=== PATIENT | male | born 1955 | race Caucasian/White ===

== ENCOUNTER 2016-11-22 10:09 | Outpatient (CLI) | payer OTHER | END 2016-11-22 10:10 | disposition home or self-care (01) | DX: E10.22 Type 1 diabetes mellitus with diabetic chronic kidney disease (principal); N18.3 Chronic kidney disease, stage 3 (moderate) ==

== ENCOUNTER 2017-03-09 10:25 | Outpatient (CLI) | payer OTHER ==
[2017-03-09 18:58] LABS: CALCIUM 9.7 mg/dL (8.5-10.3); CREATININE 1.3 mg/dL (0.6-1.2); POTASSIUM 4.5 mmol/L (3.5-5.0)
[2017-03-09 19:15] LABS: HEMOGLOBIN A1C 0.75 g/dL
== END 2017-03-09 10:26 | disposition home or self-care (01) ==
LOC: LAB.F 10:25
PROVIDERS: ATTEND Nurse Practitioner
DX: E10.22 Type 1 diabetes mellitus with diabetic chronic kidney disease (principal)
CPT/HCPCS: 36415; 80048; 82043; 82570; 83036

== ENCOUNTER 2017-05-11 16:34 | Outpatient (CLI) | payer OTHER ==
--- NOTE | 2017-05-12 11:11 | MRI Report ---
EXAM: RIGHT ANKLE/HINDFOOT MRI WITHOUT CONTRAST EXAM DATE: 05/11/2017 05:39 PM. CLINICAL HISTORY: Clinical concern for peroneus longus tear at the level of the cuboid. Ankle pain th at radiates to the foot one year after strain. 1 year ago the patient had an injury during running an d felt a pop. COMPARISON: MRI 07/16/2016. TECHNIQUE: Multiplanar, multisequence T1-weighted and fluid-sensitive sequences of the ankle/hindfoot without contrast. Other: None. FINDINGS: Bones: No fractures. The patient has a small plantar calcaneal spur with associated edema. The edema has decreased compared to the prior exam. Articular Cartilage: Unremarkable. Ligaments: The anterior and posterior tibiofibular, anterior and posterior talofibular, and calcaneof ibular ligaments are intact. The deep and superficial deltoid and spring ligaments are intact. Anterior Tendons: The tibialis anterior, extensor hallucis longus, and extensor digitorum longus tend ons are unremarkable. Medial Tendons: The tibialis posterior, flexor digitorum longus, and flexor hallucis longus tendons a re unremarkable. Lateral Tendons: The peroneus brevis tendon is unremarkable. There is a very subtle focal, chronic-ap pearing longitudinal split tear in the peroneus longus right under the cuboid at the site of pain (se weir 701, image 15). Achilles Tendon: Unremarkable. Musculature: There is moderate fatty atrophy of the intrinsic musculature of the foot. Other: No effusions. The contents of the sinus tarsi and tarsal tunnel are unremarkable. The plantar fascia is severely thickened, now measuring 1.3 cm in thickness. However, the edema within and surrou nding it has decreased and the tear previously seen at this location has healed. The subcutaneous tis sues are unremarkable. IMPRESSION: 1. Severe but improved plantar fasciitis with reduction in the surrounding edema and healing of the p reviously small tear. 2. 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 RADIA MUSCULOSKELETAL RADIOLOGY SECTION Referring Provider Line: [phone] SITE ID: [id number]
== END 2017-05-11 16:35 | disposition home or self-care (01) ==
LOC: DI 16:34
PROVIDERS: ATTEND Podiatrist
DX: M72.2 Plantar fascial fibromatosis (principal); S86.311D Strain of muscle(s) and tendon(s) of peroneal muscle group at lower leg level, right leg, subsequent encounter

== ENCOUNTER 2017-06-08 08:04 | Outpatient (CLI) | payer OTHER ==
[2017-06-08 11:46] LABS: HEMOGLOBIN A1C 0.77 g/dL
== END 2017-06-08 08:05 | disposition home or self-care (01) ==
LOC: LAB.F 08:04
PROVIDERS: ATTEND Nurse Practitioner
DX: E10.22 Type 1 diabetes mellitus with diabetic chronic kidney disease (principal); N18.3 Chronic kidney disease, stage 3 (moderate)
CPT/HCPCS: 36415; 83036

== ENCOUNTER 2017-09-11 08:31 | Outpatient (CLI) | payer OTHER ==
[2017-09-11 12:29] LABS: MICROALBUMIN,URINE < 0.3 mg/dL (0-300.0)
[2017-09-11 12:36] LABS: BUN - BLOOD UREA NITROGEN 23 mg/dL (6-20); CALCIUM 9.3 mg/dL (8.5-10.3); CARBON DIOXIDE - CO2 27 mmol/L (21-32); CHLORIDE 102 mmol/L (101-111); CHOL/HDL RATIO 3.1 (<5.0); CHOLESTEROL 182 mg/dL; CREATININE 1.1 mg/dL (0.6-1.2); GFR - MDRD 68 (>89); GLUCOSE 112 mg/dL (70-100); HDL CHOLESTEROL 59 mg/dL; LDL CHOLESTEROL,CALCULATED 104 mg/dL; LDL/HDL RATIO 1.8 (<3.6); SODIUM 136 mmol/L (135-145); VLDL CHOLESTEROL 19 mg/dL
[2017-09-11 12:44] LABS: HB2 TOTAL 14.9 g/dL; HEMOGLOBIN A1C 0.7 g/dL; HEMOGLOBIN A1C % 6.4 % (4.6-6.2)
== END 2017-09-11 08:32 | disposition home or self-care (01) ==
LOC: LAB.F 08:31
PROVIDERS: ATTEND Nurse Practitioner
DX: E10.42 Type 1 diabetes mellitus with diabetic polyneuropathy (principal)
CPT/HCPCS: 36415; 80048; 80061; 82043; 82570; 83036; 83721

== ENCOUNTER 2018-01-22 09:39 | Outpatient (CLI) | payer OTHER ==
[2018-01-22 20:02] LABS: HB2 TOTAL 15.2 g/dL; HEMOGLOBIN A1C 0.72 g/dL; HEMOGLOBIN A1C % 6.5 % (4.6-6.2)
== END 2018-01-22 09:40 | disposition home or self-care (01) ==
LOC: LAB.F 09:39
PROVIDERS: ATTEND Nurse Practitioner
DX: E10.22 Type 1 diabetes mellitus with diabetic chronic kidney disease (principal); N18.3 Chronic kidney disease, stage 3 (moderate)
CPT/HCPCS: 36415; 83036

== ENCOUNTER 2018-04-30 09:11 | Outpatient (CLI) | payer OTHER ==
[2018-04-30 18:23] LABS: HB2 TOTAL 14.5 g/dL; HEMOGLOBIN A1C 0.71 g/dL; HEMOGLOBIN A1C % 6.6 % (4.6-6.2)
== END 2018-04-30 09:12 | disposition home or self-care (01) ==
LOC: LAB.F 09:11
PROVIDERS: ATTEND Nurse Practitioner
DX: E10.649 Type 1 diabetes mellitus with hypoglycemia without coma (principal)
CPT/HCPCS: 36415; 83036

== ENCOUNTER 2018-05-31 09:57 | Outpatient (CLI) | payer OTHER ==
[2018-05-31 17:21] LABS: BASOPHILS # (AUTO) 0.1 10^3/uL (0.0-0.1); BASOPHILS % (AUTO) 0.8 %; EOSINOPHILS # (AUTO) 0.2 10^3/uL (0.0-0.7); EOSINOPHILS % (AUTO) 2.9 %; HGB - HEMOGLOBIN 14.3 g/dL (14.0-18.0); LYMPHOCYTES # (AUTO) 1.8 10^3/uL (1.5-3.5); LYMPHOCYTES % (AUTO) 25.4 %; MEAN CORPUSCULAR HEMOGLOBIN 30.5 pg (27.0-31.0); MEAN CORPUSCULAR HGB CONC 33.3 g/dL (32.0-36.0); MEAN CORPUSCULAR VOLUME 91.4 fL (80.0-94.0); MEAN PLATELET VOLUME 8.9 fL (7.4-11.4); MONOCYTES # (AUTO) 0.7 10^3/uL (0.0-1.0); MONOCYTES % (AUTO) 9.5 %; NEUTROPHILS # (AUTO) 4.3 10^3/uL (1.5-6.6); NEUTROPHILS % (AUTO) 61.4 %; PLT - PLATELET COUNT 201 10^3/uL (130-450); RED BLOOD COUNT 4.68 10^6/uL (4.70-6.10)
[2018-05-31 18:01] LABS: ALBUMIN 4.5 g/dL (3.2-5.5); ALBUMIN/GLOBULIN RATIO 1.5 (1.0-2.2); ALKALINE PHOSPHATASE 80 IU/L (42-121); ALT ALANINE AMINOTRANSFERASE 25 IU/L (10-60); AST ASPARTATE AMINOTRANSFERASE 23 IU/L (10-42); BILIRUBIN,TOTAL 0.5 mg/dL (0.2-1.0); BUN - BLOOD UREA NITROGEN 20 mg/dL (6-20); CALCIUM 9.4 mg/dL (8.5-10.3); CARBON DIOXIDE - CO2 28 mmol/L (21-32); CHLORIDE 102 mmol/L (101-111); CHOL/HDL RATIO 3.1 (<5.0); CHOLESTEROL 163 mg/dL; CREATININE 1.2 mg/dL (0.6-1.2); GFR - MDRD 62 (>89); GLUCOSE 136 mg/dL (70-100); HDL CHOLESTEROL 53 mg/dL; LDL CHOLESTEROL,CALCULATED 96 mg/dL; LDL/HDL RATIO 1.8 (<3.6); SODIUM 138 mmol/L (135-145); TOTAL PROTEIN 7.5 g/dL (6.7-8.2); VLDL CHOLESTEROL 14 mg/dL
== END 2018-05-31 09:58 | disposition home or self-care (01) ==
LOC: LAB.F 09:57
PROVIDERS: ATTEND Physician Assistant Medical
DX: Z00.00 Encounter for general adult medical examination without abnormal findings (principal); Z85.46 Personal history of malignant neoplasm of prostate; Z79.899 Other long term (current) drug therapy; E78.2 Mixed hyperlipidemia
CPT/HCPCS: 36415; 80053; 80061; 83721; 84153; 84443; 85025

== ENCOUNTER 2018-08-03 11:12 | Outpatient (CLI) | payer OTHER ==
[2018-08-03 18:12] LABS: HB2 TOTAL 14.5 g/dL; HEMOGLOBIN A1C 0.72 g/dL; HEMOGLOBIN A1C % 6.7 % (4.6-6.2)
== END 2018-08-03 11:13 | disposition home or self-care (01) ==
LOC: LAB.F 11:12
PROVIDERS: ATTEND Nurse Practitioner
DX: E10.3299 Type 1 diabetes mellitus with mild nonproliferative diabetic retinopathy without macular edema, unspecified eye (principal)
CPT/HCPCS: 36415; 83036

== ENCOUNTER 2018-11-08 08:19 | Outpatient (CLI) | payer OTHER ==
[2018-11-08 18:01] LABS: BUN - BLOOD UREA NITROGEN 26 mg/dL (6-20); CALCIUM 9.3 mg/dL (8.5-10.3); CARBON DIOXIDE - CO2 24 mmol/L (21-32); CHLORIDE 105 mmol/L (101-111); CHOL/HDL RATIO 3.2 (<5.0); CHOLESTEROL 165 mg/dL; CREATININE 0.9 mg/dL (0.6-1.2); GFR - MDRD 86 (>89); GLUCOSE 140 mg/dL (70-100); HDL CHOLESTEROL 52 mg/dL; LDL CHOLESTEROL,CALCULATED 95 mg/dL; LDL/HDL RATIO 1.8 (<3.6); SODIUM 138 mmol/L (135-145); VLDL CHOLESTEROL 18 mg/dL
[2018-11-08 18:04] LABS: CREATININE,URINE 115.7 mg/dL; MICROALBUM/CREATININE RATIO,UR 8.6 ug/mg (<30.0)
[2018-11-08 18:51] LABS: HB2 TOTAL 15.8 g/dL; HEMOGLOBIN A1C 0.86 g/dL; HEMOGLOBIN A1C % 7.1 % (4.6-6.2)
== END 2018-11-08 08:20 | disposition home or self-care (01) ==
LOC: LAB.F 08:19
PROVIDERS: ATTEND Nurse Practitioner
DX: E10.51 Type 1 diabetes mellitus with diabetic peripheral angiopathy without gangrene (principal); E78.5 Hyperlipidemia, unspecified
CPT/HCPCS: 36415; 80048; 80061; 82043; 82570; 83036; 83721

== ENCOUNTER 2019-10-07 09:36 | Outpatient (CLI) | payer OTHER ==
[2019-10-07 11:55] LABS: BASOPHILS # (AUTO) 0.1 10^3/uL (0.0-0.1); BASOPHILS % (AUTO) 1.3 %; EOSINOPHILS # (AUTO) 0.2 10^3/uL (0.0-0.7); EOSINOPHILS % (AUTO) 2.7 %; HGB - HEMOGLOBIN 14.1 g/dL (14.0-18.0); LYMPHOCYTES # (AUTO) 1.9 10^3/uL (1.5-3.5); LYMPHOCYTES % (AUTO) 30.4 %; MEAN CORPUSCULAR HEMOGLOBIN 30.4 pg (27.0-31.0); MEAN CORPUSCULAR HGB CONC 32.9 g/dL (32.0-36.0); MEAN CORPUSCULAR VOLUME 92.5 fL (80.0-94.0); MEAN PLATELET VOLUME 9.6 fL (7.4-11.4); MONOCYTES # (AUTO) 0.5 10^3/uL (0.0-1.0); MONOCYTES % (AUTO) 7.6 %; NEUTROPHILS # (AUTO) 3.6 10^3/uL (1.5-6.6); NEUTROPHILS % (AUTO) 57.7 %; PLT - PLATELET COUNT 196 10^3/uL (130-450); RED BLOOD COUNT 4.64 10^6/uL (4.70-6.10); RED CELL DISTRIBUTION WIDTH 12.7 % (12.0-15.0); WHITE BLOOD COUNT 6.2 x10^3/uL (4.8-10.8)
[2019-10-07 12:14] LABS: ALBUMIN 4.6 g/dL (3.2-5.5); ALBUMIN/GLOBULIN RATIO 1.6 (1.0-2.2); BILIRUBIN,TOTAL 0.6 mg/dL (0.2-1.0); CALCIUM 9.3 mg/dL (8.5-10.3); TOTAL PROTEIN 7.4 g/dL (6.7-8.2)
[2019-10-07 12:24] LABS: HEMOGLOBIN A1C 0.84 g/dL; HEMOGLOBIN A1C % 7.3 % (4.6-6.2)
== END 2019-10-07 09:37 | disposition home or self-care (01) ==
LOC: LAB 09:36
PROVIDERS: ATTEND Family Medicine
DX: Z95.2 Presence of prosthetic heart valve (principal); N40.0 Benign prostatic hyperplasia without lower urinary tract symptoms; I25.10 Atherosclerotic heart disease of native coronary artery without angina pectoris; E10.319 Type 1 diabetes mellitus with unspecified diabetic retinopathy without macular edema; I12.9 Hypertensive chronic kidney disease with stage 1 through stage 4 chronic kidney disease, or unspecified chronic kidney disease; N18.2 Chronic kidney disease, stage 2 (mild); E78.2 Mixed hyperlipidemia
CPT/HCPCS: 36415; 80053; 83036; 84443; 85025

== ENCOUNTER 2020-04-03 10:11 | Outpatient (CLI) | payer OTHER ==
[2020-04-03 10:39] LABS: HB2 TOTAL 14.9 g/dL; HEMOGLOBIN A1C 0.73 g/dL; HEMOGLOBIN A1C % 6.6 % (4.6-6.2)
== END 2020-04-03 10:12 | disposition home or self-care (01) ==
LOC: LAB 10:11
PROVIDERS: ATTEND Nurse Practitioner
DX: E10.59 Type 1 diabetes mellitus with other circulatory complications (principal)
CPT/HCPCS: 36415; 83036

== ENCOUNTER 2020-06-24 10:34 | Outpatient (CLI) | payer OTHER ==
--- NOTE | 2020-06-24 10:47 | XRAY Report ---
PROCEDURE: Hand 2 View RT INDICATIONS: THUMB PAIN TECHNIQUE: 2 views of the hand(s) acquired. COMPARISON: None FINDINGS: Bones: No fractures or dislocations. No suspicious bony lesions. Soft tissues: No suspicious soft tissue calcifications. Small 1-2 mm metallic density foreign body w ithin the dorsal soft tissues situated between the base of the second and third proximal phalanges. S urgical clip projects anterior to the distal radius. IMPRESSION: No fracture. No osseous lesion. If there is continued clinical concern for pathology, then repeat radha in film radiographs (7-10 days) or advanced imaging (CT, MR, bone scan) should be considered for furt her evaluation. Reviewed by: Kellee Givens MD, PhD on 06/24/2020 10:46 AM PST Approved by: Kellee Givens MD, PhD on 06/24/2020 10:46 AM [facility] Station ID: [id number]
== END 2020-06-24 10:35 | disposition home or self-care (01) ==
LOC: DI.S 10:34
PROVIDERS: ATTEND Internal Medicine
DX: M79.644 Pain in right finger(s) (principal)
CPT/HCPCS: 36415; 84550

== ENCOUNTER 2020-07-14 09:31 | Outpatient (CLI) | payer OTHER ==
[2020-07-14 11:53] LABS: HEMOGLOBIN A1c% 7.2 % (4.27-6.07)
== END 2020-07-14 09:32 | disposition home or self-care (01) ==
LOC: LAB 09:31
PROVIDERS: ATTEND Nurse Practitioner
DX: E10.3293 Type 1 diabetes mellitus with mild nonproliferative diabetic retinopathy without macular edema, bilateral (principal)
CPT/HCPCS: 36415; 83036

== ENCOUNTER 2020-10-27 11:21 | Outpatient (CLI) | payer OTHER ==
[2020-10-27 12:17] LABS: BUN - BLOOD UREA NITROGEN 21 mg/dL (6-20); CALCIUM 9.4 mg/dL (8.5-10.3); CARBON DIOXIDE - CO2 27 mmol/L (21-32); CHLORIDE 102 mmol/L (101-111); CHOL/HDL RATIO 2.9 (<5.0); CHOLESTEROL 155 mg/dL; CREATININE 1.1 mg/dL (0.6-1.2); GFR - MDRD 68 (>89); GLUCOSE 79 mg/dL (70-100); HDL CHOLESTEROL 54 mg/dL; LDL CHOLESTEROL,CALCULATED 87 mg/dL; LDL/HDL RATIO 1.6 (<3.6); POTASSIUM 4.2 mmol/L (3.5-5.0); SODIUM 139 mmol/L (135-145); TRIGLYCERIDES 71 mg/dL; VLDL CHOLESTEROL 14 mg/dL
[2020-10-27 12:35] LABS: CREATININE,URINE 114.1 mg/dL; MICROALBUM/CREATININE RATIO,UR 12.3 ug/mg (<30.0); MICROALBUMIN,URINE 1.4 mg/dL (0-300.0)
[2020-10-27 13:12] LABS: ESTIMATED AVERAGE GLUCOSE 157 mg/dL (70-100); HEMOGLOBIN A1c% 7.1 % (4.27-6.07)
== END 2020-10-27 11:22 | disposition home or self-care (01) ==
LOC: LAB 11:21
PROVIDERS: ATTEND Nurse Practitioner Family
DX: E10.65 Type 1 diabetes mellitus with hyperglycemia (principal)
CPT/HCPCS: 36415; 80048; 80061; 82043; 82570; 83036; 83721; 84443

== ENCOUNTER 2020-11-18 12:31 | Outpatient (CLI) | payer OTHER ==
--- NOTE | 2020-11-18 15:44 | CARDIAC PROCEDURE NOTE ---
DATE OF SERVICE: 11/18/2020 Physician: May Dacosta MD, [facility] INDICATION: Aortic valve replacement, 2-vessel CABG (5 years ago), DOT physical. CARDIAC RISK FACTORS: Male gender, diabetes, obesity, possibly untreated hypertension, ex-smoker who quit 5 years ago. DESCRIPTION OF PROCEDURE: After signing informed consent, the patient underwent a Vincent-protocol treadmill stress test with nuclear myocardial perfusion imaging. RESTING HEART RATE: 69. PEAK HEART RATE: 122 (77% predicted maximum heart rate for age). RESTING BLOOD PRESSURE: 135/72. PEAK BLOOD PRESSURE: 207/76. The patient exercised for 6 minutes and 15 seconds on a Vincent-protocol treadmill stress test. He achieved a peak heart rate of 122 (77% PMHR) and 7.05 METs. The patient developed moderate shortness of breath at stage I and severe shortness of breath at stage II and at peak, his oxygen saturation dropped to 89% on room air. The patient reported his perceived exertion at 19/20 on the Eda scale, and the last 15 seconds were not performed in stage III, because of his extreme perceived exertion and audible wheezing. In recovery, wheezing was auscultated in all lung hdez posteriorly. Oxygen saturation recovered to 97% by 1 minute of recovery. RESTING EKG: Normal sinus rhythm, left atrial enlargement, LVH voltage. EKG AT STAGE II: T-wave flattening in the inferolateral leads. EKG AT PEAK: [address] depressions are seen in leads II, III, aVF, and V4 through V6 with continued T-wave flattening in the same leads. In immediate recovery, the patient developed several runs of ventricular bigeminy. SUMMARY: 1. Abnormal resting EKG. 2. The patient did not achieve target heart rate of 85% to consider this an adequate test for DOT, despite exercising to extreme fatigue. 3. Oxygen desaturation and marked fatigue occurs, along with excessive hypertensive response to exercise, indicating poor aerobic tolerance. 4. Significant EKG changes are noted suggesting ischemia develops with exercise. 5. Nuclear images were reported separately and showed: Normal tracer uptake, no areas of fixed or reversible deficits are seen. Exercise LVEF 62%. IMPRESSION: 1. Abnormal stress test by EKG criteria, which may be due to LVH. 2. Oxygen desaturation with audible wheezing is heard at peak exercise. RECOMMENDATIONS: 1. Cardiology followup for medication adjustments, consideration for repeat coronary angiography, consider oxygen prescription. 2. DOT requires passing exercise testing to 85% predicted maximum heart rate for age. This patient achieved 77%. cc: MD Maurice Treviño DO TD: 11/18/2020 15:16 MTDD
--- NOTE | 2020-11-18 17:29 | Nuclear Medicine Report ---
PROCEDURE: Rest and exercise myocardial perfusion SPECT with gated imaging and ejection fraction INDICATIONS: AORTIC VALVE REPLACEMENT RADIOPHARMACEUTICAL: 12.1 mCi Tc-99m Myoview IV at rest and 36.7 mCi Tc-99m Myoview IV at peak exerc ise. Aad-hwi-lthnqvyl was performed. TECHNIQUE: Radiopharmaceutical was injected at peak stress test, and also at rest. SPECT images wer e obtained. SPECT myocardial perfusion images were displayed in short axis, horizontal long axis, an d vertical long axis views. Gated images were reviewed using [employer] software. COMPARISON: None available. CARDIAC STRESS: A standard Vincent treadmill exercise tolerance test was performed by the patient under the supervision of an attending staff. The patient exercised for 6 minutes and 15 seconds; functional aerobic impai rment (AN) is 20.1%. Hemodynamic data: There is normal blood pressure and heart rate response to exercise stress. Jeff t achieved 77 of maximum predicted heart rate at peak exercise. EKG: No diagnostic EKG changes of ischemia. FINDINGS: Raw data: There is good myocardial labeling by radiotracer. No significant motion artifacts. Lung- to-heart ratio is 0.35 (normal is less than 0.38 for tetrafosmin tracer). Left ventricle function: Gated images demonstrate normal left ventricle wall thickening. No segment al wall motion abnormality. No transient ischemic dilation; TID is 1.1 (normal less than 1.3). The left ventricle resting end-diastolic volume is 91 mL. Left ventricle stress ejection fraction is 62% ; normal values are above 45%. Myocardial perfusion: There is normal distribution of activity in the left and right ventricular andrew cardium. No definite fixed or reversible perfusion defects. IMPRESSION: 1. Normal myocardial perfusion images without definite effusion defects. 2. Normal left ventricular ejection fraction without segmental wall motion abnormalities. 3. No diagnostic EKG changes of ischemia following exercise stress. PQRS ATTESTATIONS: Measure 322 - Is this imaging test primarily performed on a low-risk surgery patient for preoperative evaluation within 30 days preceding their low-risk non-cardiac surgery? Low-risk surgery is defined as cardiac or myocardial infarction less than 1%, including (but not limited to) endoscopic pr ocedures, superficial procedures, cataract surgery, and excisional breast surgery: Answer: No Measure 323 - Is this imaging test performed primarily for the monitoring of an asymptomatic patient who had percutaneous coronary intervention on the visit date or within 2 years of the visit date? An swer: No Measure 324 - Is this imaging test performed primarily for the initial detection and risk assessment on an asymptomatic, low coronary heart disease patient? Low CHD risk definition = clinicians should consider the maximum number of available patient factors used to estimate risk based on [place] (A TP III criteria), typically age, gender, diabetes, smoking status, and use of blood pressure medicati on, and integrate age appropriate estimates for missing elements, such as LDL or standard blood press ure. Answer: No Reviewed by: Tejas Capps MD on 11/18/2020 5:28 PM PDT Approved by: Tejas Capps MD on 11/18/2020 5:28 PM PDT Station ID: [id number]
== END 2020-11-18 12:32 | disposition home or self-care (01) ==
LOC: DI 12:31
PROVIDERS: ATTEND Internal Medicine
DX: Z95.2 Presence of prosthetic heart valve (principal); R94.31 Abnormal electrocardiogram [ECG] [EKG]; Z95.1 Presence of aortocoronary bypass graft; E11.9 Type 2 diabetes mellitus without complications; E66.9 Obesity, unspecified; Z87.891 Personal history of nicotine dependence
CPT/HCPCS: 78452; 93017; A9500

== ENCOUNTER 2021-02-05 11:00 | Outpatient (CLI) | payer OTHER ==
[2021-02-05 11:28] LABS: MICROALBUM/CREATININE RATIO,UR 12.5 ug/mg (<30.0); MICROALBUMIN,URINE 0.3 mg/dL (0-300.0)
[2021-02-05 11:44] LABS: BUN - BLOOD UREA NITROGEN 23 mg/dL (6-20); CALCIUM 9.6 mg/dL (8.5-10.3); CARBON DIOXIDE - CO2 27 mmol/L (21-32); CHLORIDE 98 mmol/L (101-111); CHOL/HDL RATIO 2.7 (<5.0); CHOLESTEROL 154 mg/dL; CREATININE 1.1 mg/dL (0.6-1.2); GFR - MDRD 68 (>89); GLUCOSE 182 mg/dL (70-100); HDL CHOLESTEROL 57 mg/dL; LDL CHOLESTEROL,CALCULATED 85 mg/dL; LDL/HDL RATIO 1.5 (<3.6); POTASSIUM 4.7 mmol/L (3.5-5.0); SODIUM 137 mmol/L (135-145); TRIGLYCERIDES 59 mg/dL; VLDL CHOLESTEROL 12 mg/dL
[2021-02-05 13:01] LABS: ESTIMATED AVERAGE GLUCOSE 157 mg/dL (70-100); HEMOGLOBIN A1c% 7.1 % (4.27-6.07)
== END 2021-02-05 11:01 | disposition home or self-care (01) ==
LOC: LAB 11:00
PROVIDERS: ATTEND Nurse Practitioner Family
DX: Z01.812 Encounter for preprocedural laboratory examination (principal); E10.65 Type 1 diabetes mellitus with hyperglycemia; Z20.822 Contact with and (suspected) exposure to COVID-19
CPT/HCPCS: 36415; 80048; 80061; 82043; 82570; 83036; 83721; 84443

== ENCOUNTER 2021-02-05 14:48 | Outpatient (CLI) | payer OTHER | END 2021-02-05 14:49 | disposition home or self-care (01) | LOC: COV 14:48 | PROVIDERS: ATTEND Internal Medicine Cardiovascular Disease | DX: Z01.812 Encounter for preprocedural laboratory examination (principal); Z20.822 Contact with and (suspected) exposure to COVID-19 ==

== ENCOUNTER 2021-03-23 10:18 | Outpatient (CLI) | payer OTHER | END 2021-03-23 10:19 | disposition home or self-care (01) | LOC: DI 10:18 | PROVIDERS: ATTEND Internal Medicine Cardiovascular Disease | DX: Z95.2 Presence of prosthetic heart valve (principal) | CPT/HCPCS: 93306 ==

== ENCOUNTER 2021-05-03 12:41 | Outpatient (CLI) | payer OTHER ==
[2021-05-03 13:52] LABS: ESTIMATED AVERAGE GLUCOSE 146 mg/dL (70-100); HEMOGLOBIN A1c% 6.7 % (4.27-6.07)
== END 2021-05-03 12:42 | disposition home or self-care (01) ==
LOC: LAB 12:41
PROVIDERS: ATTEND Nurse Practitioner Family
DX: E10.65 Type 1 diabetes mellitus with hyperglycemia (principal)
CPT/HCPCS: 36415; 83036

== ENCOUNTER 2021-05-11 14:27 | Outpatient (CLI) | payer OTHER | END 2021-05-11 14:28 | disposition home or self-care (01) | LOC: COV 14:27 | PROVIDERS: ATTEND Family Medicine | DX: Z20.822 Contact with and (suspected) exposure to COVID-19 (principal) ==

== ENCOUNTER 2021-05-13 10:03 | Outpatient (CLI) | payer OTHER ==
--- NOTE | 2021-05-13 12:47 | XRAY Report ---
PROCEDURE: Ankle 3 View RT INDICATIONS: ANKLE JOINT PAIN, RIGHT TECHNIQUE: 3 views of the ankle were acquired. COMPARISON: None FINDINGS: Bones: No fractures or dislocations. Ankle mortise is normally aligned. No suspicious bony lesions . Mild degenerative change. Soft tissues: No tibiotalar joint effusion. Achilles tendon appears normal. IMPRESSION: Mild degenerative change. No evidence acute bony abnormality of the right ankle. If clinical suspicion and/or symptoms persist, further assessment with repeat plain films or advanced imaging (e.g., CT, MRI, or bone scan) may be helpful for further assessment. Reviewed by: Raman Graf MD on 05/13/2021 12:46 PM PDT Approved by: Raman Graf MD on 05/13/2021 12:46 PM PDT Station ID: [id number]
[2021-05-13 14:35] LABS: BASOPHILS % (AUTO) 0.4 %; HCT - HEMATOCRIT 30.7 % (42.0-52.0); HGB - HEMOGLOBIN 9.6 g/dL (14.0-18.0); LYMPHOCYTES # (AUTO) 0.8 10^3/uL (1.5-3.5); LYMPHOCYTES % (AUTO) 11.9 %; MEAN CORPUSCULAR HGB CONC 31.3 g/dL (32.0-36.0); MEAN CORPUSCULAR VOLUME 89.5 fL (80.0-94.0); MEAN PLATELET VOLUME 10.3 fL (7.4-11.4); MONOCYTES # (AUTO) 0.3 10^3/uL (0.0-1.0); MONOCYTES % (AUTO) 4.9 %; NEUTROPHILS # (AUTO) 5.7 10^3/uL (1.5-6.6); NEUTROPHILS % (AUTO) 82.4 %; PLT - PLATELET COUNT 213 10^3/uL (130-450); RED BLOOD COUNT 3.43 10^6/uL (4.70-6.10); RED CELL DISTRIBUTION WIDTH 14.4 % (12.0-15.0)
== END 2021-05-13 10:04 | disposition home or self-care (01) ==
LOC: DI.S 10:03
PROVIDERS: ATTEND Internal Medicine
DX: M19.071 Primary osteoarthritis, right ankle and foot (principal); R53.83 Other fatigue; I10 Essential (primary) hypertension
CPT/HCPCS: 36415; 82728; 85025

== ENCOUNTER 2021-05-25 07:56 | Day surgery (SDC) | payer OTHER ==
[2021-05-25] MEDS ORDERED: LACTATED RINGERS 1,000 ML IV ONE (08:40)
--- NOTE | 2021-05-25 09:29 | ANESTHESIA ---
Pre-Anesthesia VS, & Labs - Diagnosis anemia - Procedure colonoscopy, EGD Vital Signs: Temp Pulse Resp BP Pulse Ox 36.6 C 95 16 95/54 L 97 05/25/21 08:12 05/25/21 08:12 05/25/21 08:12 05/25/21 08:12 05/25/21 08:12 Height: 6 ft 1 in Weight (kg): 101 kg Body Mass Index: 29.3 BMI Classification: Overweight - NPO >8 hours - Lab Results Current Lab Results: Laboratory Tests 05/25/21 08:45: POC Whole Bld Glucose 195 H Lab results reviewed: Yes Home Medications and Allergies Aspirin [Adult Low Dose Aspirin EC] 2 tab PO DAILY 12/04/15 Insulin Glargine [Lantus Solostar] 35 unit SUBQ DAILY 12/04/15 Insulin Lispro [Humalog] 2 - 15 unit SUBQ DAILY 12/04/15 Lovastatin 40 mg PO DAILY 12/04/15 lisinopriL [Lisinopril] 2.5 mg PO DAILY 12/04/15 Allergies/Adverse Reactions: Allergies Allergy/AdvReac Type Severity Reaction Status Date / Time No Known Drug Allergies Allergy Verified 12/04/15 14:18 Anes History & Medical History - Anesthetic History Anesthesia Complications: reports: No previous complications Family history of Anesthesia Complications: Denies Family history of Malignant Hyperthermia: Denies - Medical History Cardiovascular: reports: Hypertension, High cholesterol, Coronary artery disease, Valve disorder Gastrointestinal: reports: None Urinary: reports: Benign prostate hypertrophy, Other Musculoskeletal: reports: Osteoarthritis Endocrine/Autoimmune: reports: Type 1 diabetes Skin: reports: None Smoking Status: Former smoker - Surgical History General: reports: Appendectomy, Colonoscopy Eyes Ears Nose Throat (EENT): reports: Cataracts Cardiothoracic: reports: CABG, Valve replacement Orthopedic: reports: Other Results - Echo Results Echo Results: Report reviewed Exam General: Alert, Oriented x3, Cooperative, No acute distress Dental: WNL Mouth Openin Fingerbreadth Neck Mobility: Normal Mallampati classification: II Respiratory: Lungs clear, Normal breath sounds, No respiratory distress, No accessory muscle use Cardiovascular: Regular rate, Normal S1, Normal S2, No murmurs Plan Anesthesia Type: General, Total IV Consent for Procedure(s) Verified and Reviewed: Yes Code Status: Attempt Resuscitation ASA classification: 3-Severe systemic disease Is this case an emergency?: No
[2021-05-25] MEDS ORDERED: PROPOFOL 500 MG/50 ML 500 MG/50 ML VIAL ONE (09:35)
[2021-05-25] MEDS ORDERED: LIDOCAINE-PF 2% 10 ML AMP SUBQ ONE (09:35)
[2021-05-25] MEDS ORDERED: PROPOFOL 200 MG/20 ML VIAL IVP ONE (09:35)
[2021-05-25] MEDS ORDERED: LACTATED RINGERS 250 ML IV ONE (10:20)
[2021-05-25 10:43] VITALS: BP 91/64
--- NOTE | 2021-05-25 13:56 | ANESTHESIA POST OP EVALUATION ---
Anesthesia Post Eval - Post Anesthesia Eval Vitals: Last Vital Signs Temp 35.1 C L 05/25/21 10:40 Pulse 73 05/25/21 10:40 Resp 30 H 05/25/21 10:40 BP 91/64 05/25/21 10:40 Pulse Ox 98 05/25/21 10:40 CV Function Including HR & BP: Stable Pain Control: Satisfactory Nausea & Vomiting: Negative Mental Status: Baseline Respiratory Status: Airway Patent Hydration Status: Satisfactory Anesthesia Complications: None
== END 2021-05-25 07:57 | disposition home or self-care (01) ==
LOC: SDS 07:56
PROVIDERS: ATTEND Surgery
PROC: 0DJD8ZZ Inspection of Lower Intestinal Tract, Via Natural or Artificial Opening Endoscopic (ICD-10-PCS; principal; 2021-05-25 09:30)
PROC: 0DB78ZX Excision of Stomach, Pylorus, Via Natural or Artificial Opening Endoscopic, Diagnostic (ICD-10-PCS; 2021-05-25 09:30)
DX: D64.9 Anemia, unspecified (principal); E11.22 Type 2 diabetes mellitus with diabetic chronic kidney disease; I12.9 Hypertensive chronic kidney disease with stage 1 through stage 4 chronic kidney disease, or unspecified chronic kidney disease; N18.2 Chronic kidney disease, stage 2 (mild); Z79.4 Long term (current) use of insulin; Z86.010 Personal history of colon polyps; K29.70 Gastritis, unspecified, without bleeding; K25.9 Gastric ulcer, unspecified as acute or chronic, without hemorrhage or perforation; Z20.822 Contact with and (suspected) exposure to COVID-19; Z95.2 Presence of prosthetic heart valve; Q23.1 Congenital insufficiency of aortic valve; I25.10 Atherosclerotic heart disease of native coronary artery without angina pectoris; Z87.891 Personal history of nicotine dependence
CPT/HCPCS: 43239; 45330; 87635; J7120

== ENCOUNTER 2021-05-30 13:10 | Outpatient (CLI) | payer OTHER ==
[2021-05-30 14:47] LABS: % IRON SATURATION 8 % (20-50); IRON 15 ug/dL (45-182); TOTAL IRON BINDING CAPACITY 182 ug/dL (250-450); TRANSFERRIN 130 mg/dL (180-329)
== END 2021-05-30 13:11 | disposition home or self-care (01) ==
LOC: LAB 13:10
PROVIDERS: ATTEND Internal Medicine
DX: R79.89 Other specified abnormal findings of blood chemistry (principal); R31.9 Hematuria, unspecified
CPT/HCPCS: 36415; 81001; 81256; 82728; 83540; 84466; 87086

== ENCOUNTER 2021-05-30 14:43 | Emergency (ER) | payer OTHER ==
[2021-05-30 15:18] LABS: BASOPHILS % (AUTO) 0.2 %; HCT - HEMATOCRIT 28.3 % (42.0-52.0); HGB - HEMOGLOBIN 9.2 g/dL (14.0-18.0); LYMPHOCYTES # (AUTO) 0.8 10^3/uL (1.5-3.5); LYMPHOCYTES % (AUTO) 9.5 %; MEAN CORPUSCULAR HEMOGLOBIN 27.6 pg (27.0-31.0); MEAN CORPUSCULAR HGB CONC 32.5 g/dL (32.0-36.0); MEAN PLATELET VOLUME 10.2 fL (7.4-11.4); MONOCYTES # (AUTO) 0.4 10^3/uL (0.0-1.0); MONOCYTES % (AUTO) 4.9 %; NEUTROPHILS # (AUTO) 6.9 10^3/uL (1.5-6.6); NEUTROPHILS % (AUTO) 84.8 %; PLT - PLATELET COUNT 175 10^3/uL (130-450); RED BLOOD COUNT 3.33 10^6/uL (4.70-6.10); RED CELL DISTRIBUTION WIDTH 14.4 % (12.0-15.0); WHITE BLOOD COUNT 8.1 x10^3/uL (4.8-10.8)
--- NOTE | 2021-05-30 15:21 | ED Physician Documentation ---
History of Present Illness - Stated complaint Stated Complaint: FAINTING/DIZZY - Chief complaint Chief Complaint: Cardiac - Additonal information Additional information: 65-year-old male presents the emergency department for evaluation of a near syncope event. This gentleman was in our laboratory getting a lab draw for a work-up of anemia and generalized weakness. He was also to give a urine specimen but was unable to urinate thus he was drinking water. Patient tells me he drink too much water too fast he began to get nauseated he stood up to go find a bathroom where he got dizzy and then collapsed however he did not lose consciousness. He denies that he was having any chest pain or shortness of air. He remembers the full events. Shortly after his collapse event in the lab the patient is brought to the emergency department for evaluation. We do note soft low blood pressures in the 80s and 90s. He has a heart rate however in the 70s and 80s without tachycardia. IV has been established and a liter of saline to run wide-open has been ordered. Patient and his report that for the last 3 weeks he has been progressively fatigued and weak. He has lost his appetite and sense of smell. He is really only taking water with electrolytes at this time. This gentleman has been worked up recently for anemia. He did have a EGD/colonoscopy with our Dr. Byers on 05/25/2021. There were findings of mild diffuse gastritis and blood present. no active bleeding. superficial small ulceration. His Colonoscopy was unremarkable Patient is also a type I diabetic with very good control of his sugars last A1c was less than 7. Patient does have a history of aortic valve replacement with a bovine valve secondary to bicuspid aortic valve at . Review of Systems Constitutional: reports: Fatigue. denies: Fever, Chills, Myalgias Eyes: denies: Loss of vision, Decreased vision Ears: denies: Loss of hearing, Ear pain Nose: reports: Reviewed and negative Throat: reports: Reviewed and negative Cardiac: reports: Reviewed and negative Respiratory: denies: Dyspnea, Cough GI: reports: Nausea, Vomiting. denies: Abdominal Pain : denies: Dysuria, Frequency, Hesitancy Skin: denies: Rash, Lesions Musculoskeletal: denies: Neck pain Neurologic: reports: Generalized weakness, Syncope, LOC. denies: Focal wea kness, Headache, Head injury Psychiatric: reports: Depressed PD PAST MEDICAL HISTORY - Past Medical History Cardiovascular: Hypertension, High cholesterol, Coronary artery disease, Valve disorder Endocrine/Autoimmune: Type 1 diabetes GI: None : Benign prostate hypertrophy, Other HEENT: Other Psych: None Musculoskeletal: Osteoarthritis Derm: None - Past Surgical History General: Appendectomy, Colonoscopy Ortho: Other Cardiovascular: CABG, Valve replacement HEENT: Cataracts - Present Medications Home Medications: Ambulatory Orders Medication Instructions Recorded Confirmed Aspirin [Adult Low Dose Aspirin EC] 2 tab PO DAILY 12/04/15 05/30/21 Insulin Glargine [Lantus Solostar] 34 unit SUBQ DAILY 12/04/15 05/30/21 Insulin Lispro [Humalog] 2 - 15 unit SUBQ PRN PRN 12/04/15 05/30/21 lisinopriL [Lisinopril] 2.5 mg PO DAILY 12/04/15 05/30/21 Atorvastatin Calcium [Lipitor] 80 mg DAILY 05/30/21 05/30/21 Insulin NPH Human [NovoLIN N] 10 units SUBQ DAILY 05/30/21 05/30/21 - Allergies Allergies/Adverse Reactions: Allergies Allergy/AdvReac Type Severity Reaction Status Date / Time No Known Drug Allergies Allergy Verified 12/04/15 14:18 - Social History Does the pt smoke?: No Smoking Status: Former smoker PD ED PE EXPANDED - General General: Alert, No acute distress, Well developed/nourished - Neck Neck: Supple w/out meningeal sx. No: Adenopathy - Cardiac Cardiac: Regular Rate, Cap refill < 2 sec. No: Murmur Present, Radial strong equal (1+ radial and pedal pulses bilaterally), Pedal strong equal - Respiratory Respiratory: Clear to ausultation damion. No: Distress, Labored - Abdomen Abdomen: Normal Bowel sounds. No: Tender to palpation - Back Back: Normal exam. No: Vertebral tenderness, Soft tissue tenderness - Derm Derm: Warm and dry, Pale - Extremities Extremities: Normal, Pedal edema bilateral, Pedal Pulses Present. No: Deformity, Tenderness, Cold foot - Neuro Neuro: Alert and Oriented X 3, CNII-XII intact, Normal finger nose, Normal speech. No: Confused, Disoriented - GCS Eye Opening: Spontaneous Motor: Obeys Commands Verbal: Oriented Total: 15 Results - Vitals Vitals: Vital Signs - 24 hr 05/30/21 05/30/21 05/30/21 14:50 15:08 15:14 Temperature Heart Rate 85 82 72 Heart Rate [ Sitting] Heart Rate [ Standing] Heart Rate [ Supine] Respiratory 15 35 H 16 Rate Blood Pressure 76/52 L 89/77 L 86/58 L Blood Pressure [Sitting] Blood Pressure [Standing] Blood Pressure [Supine] O2 Saturation 98 100 100 05/30/21 05/30/21 05/30/21 15:34 15:37 15:50 Temperature Heart Rate 75 74 Heart Rate [ 82 Sitting] Heart Rate [ 90 Standing] Heart Rate [ 74 Supine] Respiratory 16 13 Rate Blood Pressure 95/57 L 95/57 L Blood Pressure 85/55 L [Sitting] Blood Pressure 75/50 L [Standing] Blood Pressure 83/53 L [Supine] O2 Saturation 100 100 05/30/21 05/30/21 05/30/21 16:01 16:37 17:09 Temperature Heart Rate 74 76 46 L Heart Rate [ Sitting] Heart Rate [ Standing] Heart Rate [ Supine] Respiratory 16 18 16 Rate Blood Pressure 99/53 L 116/62 100/55 L Blood Pressure [Sitting] Blood Pressure [Standing] Blood Pressure [Supine] O2 Saturation 100 100 100 05/30/21 05/30/21 05/30/21 17:31 17:55 18:00 Temperature 37.0 C Heart Rate 74 71 73 Heart Rate [ Sitting] Heart Rate [ Standing] Heart Rate [ Supine] Respiratory 16 21 18 Rate Blood Pressure 103/61 93/53 L 91/61 Blood Pressure [Sitting] Blood Pressure [Standing] Blood Pressure [Supine] O2 Saturation 98 97 98 05/30/21 05/30/21 05/30/21 18:59 19:02 19:22 Temperature Heart Rate 46 L 46 L 74 Heart Rate [ Sitting] Heart Rate [ Standing] Heart Rate [ Supine] Respiratory 16 18 19 Rate Blood Pressure 90/56 L 89/53 L 92/57 L Blood Pressure [Sitting] Blood Pressure [Standing] Blood Pressure [Supine] O2 Saturation 99 100 100 05/30/21 05/30/21 05/30/21 19:31 20:01 20:35 Temperature 37.1 C Heart Rate 73 72 75 Heart Rate [ Sitting] Heart Rate [ Standing] Heart Rate [ Supine] Respiratory 20 19 17 Rate Blood Pressure 93/56 L 91/53 L 103/58 L Blood Pressure [Sitting] Blood Pressure [Standing] Blood Pressure [Supine] O2 Saturation 100 100 98 05/30/21 05/30/21 05/30/21 21:00 21:47 22:00 Temperature Heart Rate 79 48 L 75 Heart Rate [ Sitting] Heart Rate [ Standing] Heart Rate [ Supine] Respiratory 16 21 16 Rate Blood Pressure 91/56 L 97/58 L 92/55 L Blood Pressure [Sitting] Blood Pressure [Standing] Blood Pressure [Supine] O2 Saturation 97 99 98 Oxygen O2 Source Room air - EKG (time done) 1512 Rate: Rate (enter#) (76) Rhythm: NSR Orient: Normal Intervals: Normal CT QRS: Normal Ischemia: ST elevation c/w repol Compare to prior EKG: Old EKG unavailable Computer interpretation: Agree with computer 1705 Rate: Rate (enter#) (46) Rhythm: Sinus bradycardia, Wide complex tachycardia Orient: Normal Intervals: Normal CT, Prolonged QT QRS: Normal Ischemia: Non specific changes Compare to prior EKG: Changed from prior EKG Computer interpretation: Agree with computer - Labs Labs: Laboratory Tests 05/30/21 05/30/21 05/30/21 15:02 15:11 15:11 WBC 8.1 RBC 3.33 L Hgb 9.2 L Hct 28.3 L MCV 85.0 MCH 27.6 MCHC 32.5 RDW 14.4 Plt Count 175 MPV 10.2 Neut # (Auto) 6.9 H Lymph # (Auto) 0.8 L Lamar # (Auto) 0.4 Eos # (Auto) 0.0 Baso # (Auto) 0.0 Absolute Nucleated RBC 0.00 Nucleated RBC % 0.0 Sodium 128 L Potassium 3.7 Chloride 97 L Carbon Dioxide 19 L Anion Gap 12.0 BUN 66 H Creatinine 4.8 H Estimated GFR (MDRD) 12 L Glucose 152 H POC Whole Bld Glucose 140 H Lactic Acid Calcium 8.0 L Total Bilirubin 0.8 AST 50 H ALT 42 Alkaline Phosphatase 67 Troponin I High Sens Total Protein 6.2 L Albumin 2.3 L Globulin 3.9 Albumin/Globulin Ratio 0.6 L Lipase 29 TSH Urine Color Urine Clarity Urine pH Ur Specific [place] Urine Protein Urine Glucose (UA) Urine Ketones Urine Occult Blood Urine Nitrite Urine Bilirubin Urine Urobilinogen Ur Leukocyte Esterase Urine RBC Urine WBC Ur Squamous Epith Cells Amorphous Sediment Urine Bacteria Ur Microscopic Review Urine Culture Comments Nasal Adenovirus (PCR) Nasal B. parapertussis DNA (PCR) Nasal Coronavir 229E PCR Nasal Coronavir HKU1 PCR Nasal Coronavir NL63 PCR Nasal Coronavir OC43 PCR Nasal Enterovir/Rhinovir PCR Nasal Influenza B PCR Nasal Influenza A PCR Nasal Parainfluen 1 PCR Nasal Parainfluen 2 PCR Nasal Parainfluen 3 PCR Nasal Parainfluen 4 PCR Nasal RSV (PCR) Nasal B.pertussis DNA PCR Nasal C.pneumoniae (PCR) Scott Human Metapneumo PCR Nasal M.pneumoniae (PCR) Nasal SARS-CoV-2 (PCR) 05/30/21 05/30/21 05/30/21 15:11 15:11 15:57 WBC RBC Hgb Hct MCV MCH MCHC RDW Plt Count MPV Neut # (Auto) Lymph # (Auto) Lamar # (Auto) Eos # (Auto) Baso # (Auto) Absolute Nucleated RBC Nucleated RBC % Sodium Potassium Chloride Carbon Dioxide Anion Gap BUN Creatinine Estimated GFR (MDRD) Glucose POC Whole Bld Glucose Lactic Acid 1.3 Calcium Total Bilirubin AST ALT Alkaline Phosphatase Troponin I High Sens 51.7 H* Total Protein Albumin Globulin Albumin/Globulin Ratio Lipase TSH 1.65 Urine Color Urine Clarity Urine pH Ur Specific [place] Urine Protein Urine Glucose (UA) Urine Ketones Urine Occult Blood Urine Nitrite Urine Bilirubin Urine Urobilinogen Ur Leukocyte Esterase Urine RBC Urine WBC Ur Squamous Epith Cells Amorphous Sediment Urine Bacteria Ur Microscopic Review Urine Culture Comments Nasal Adenovirus (PCR) Nasal B. parapertussis DNA (PCR) Nasal Coronavir 229E PCR Nasal Coronavir HKU1 PCR Nasal Coronavir NL63 PCR Nasal Coronavir OC43 PCR Nasal Enterovir/Rhinovir PCR Nasal Influenza B PCR Nasal Influenza A PCR Nasal Parainfluen 1 PCR Nasal Parainfluen 2 PCR Nasal Parainfluen 3 PCR Nasal Parainfluen 4 PCR Nasal RSV (PCR) Nasal B.pertussis DNA PCR Nasal C.pneumoniae (PCR) Scott Human Metapneumo PCR Nasal M.pneumoniae (PCR) Nasal SARS-CoV-2 (PCR) 05/30/21 05/30/21 05/30/21 17:07 17:10 17:21 WBC RBC Hgb Hct MCV MCH MCHC RDW Plt Count MPV Neut # (Auto) Lymph # (Auto) Lamar # (Auto) Eos # (Auto) Baso # (Auto) Absolute Nucleated RBC Nucleated RBC % Sodium 130 L Potassium 3.7 Chloride 102 Carbon Dioxide 19 L Anion Gap 9.0 BUN 63 H Creatinine 4.7 H Estimated GFR (MDRD) 13 L Glucose 105 H POC Whole Bld Glucose Lactic Acid Calcium 7.4 L Total Bilirubin AST ALT Alkaline Phosphatase Troponin I High Sens Total Protein Albumin Globulin Albumin/Globulin Ratio Lipase TSH Urine Color DARK YELLOW Urine Clarity HAZY Urine pH 5.0 Ur Specific [place] 1.020 Urine Protein 100 H Urine Glucose (UA) NEGATIVE Urine Ketones NEGATIVE Urine Occult Blood LARGE H Urine Nitrite NEGATIVE Urine Bilirubin NEGATIVE Urine Urobilinogen 0.2 (NORMAL) Ur Leukocyte Esterase NEGATIVE Urine RBC 11-25 H Urine WBC 0-3 Ur Squamous Epith Cells NONE SEEN Amorphous Sediment Marked Urine Bacteria Many H Ur Microscopic Review INDICATED Urine Culture Comments NOT INDICATED Nasal Adenovirus (PCR) NOT DETECTED Nasal B. parapertussis DNA (PCR) NOT DETECTED Nasal Coronavir 229E PCR NOT DETECTED Nasal Coronavir HKU1 PCR NOT DETECTED Nasal Coronavir NL63 PCR NOT DETECTED Nasal Coronavir OC43 PCR NOT DETECTED Nasal Enterovir/Rhinovir PCR NOT DETECTED Nasal Influenza B PCR NOT DETECTED Nasal Influenza A PCR NOT DETECTED Nasal Parainfluen 1 PCR NOT DETECTED Nasal Parainfluen 2 PCR NOT DETECTED Nasal Parainfluen 3 PCR NOT DETECTED Nasal Parainfluen 4 PCR NOT DETECTED Nasal RSV (PCR) NOT DETECTED Nasal B.pertussis DNA PCR NOT DETECTED Nasal C.pneumoniae (PCR) NOT DETECTED Scott Human Metapneumo PCR NOT DETECTED Nasal M.pneumoniae (PCR) NOT DETECTED Nasal SARS-CoV-2 (PCR) NOT DETECTED 05/30/21 05/30/21 17:47 21:50 WBC RBC Hgb Hct MCV MCH MCHC RDW Plt Count MPV Neut # (Auto) Lymph # (Auto) Lamar # (Auto) Eos # (Auto) Baso # (Auto) Absolute Nucleated RBC Nucleated RBC % Sodium Potassium Chloride Carbon Dioxide Anion Gap BUN Creatinine Estimated GFR (MDRD) Glucose POC Whole Bld Glucose 137 H Lactic Acid Calcium Total Bilirubin AST ALT Alkaline Phosphatase Troponin I High Sens 42.4 H* Total Protein Albumin Globulin Albumin/Globulin Ratio Lipase TSH Urine Color Urine Clarity Urine pH Ur Specific [place] Urine Protein Urine Glucose (UA) Urine Ketones Urine Occult Blood Urine Nitrite Urine Bilirubin Urine Urobilinogen Ur Leukocyte Esterase Urine RBC Urine WBC Ur Squamous Epith Cells Amorphous Sediment Urine Bacteria Ur Microscopic Review Urine Culture Comments Nasal Adenovirus (PCR) Nasal B. parapertussis DNA (PCR) Nasal Coronavir 229E PCR Nasal Coronavir HKU1 PCR Nasal Coronavir NL63 PCR Nasal Coronavir OC43 PCR Nasal Enterovir/Rhinovir PCR Nasal Influenza B PCR Nasal Influenza A PCR Nasal Parainfluen 1 PCR Nasal Parainfluen 2 PCR Nasal Parainfluen 3 PCR Nasal Parainfluen 4 PCR Nasal RSV (PCR) Nasal B.pertussis DNA PCR Nasal C.pneumoniae (PCR) Scott Human Metapneumo PCR Nasal M.pneumoniae (PCR) Nasal SARS-CoV-2 (PCR) - Rads (name of study) cxr Radiology: Final report received (No acute cardiopulmonary process.) CT abd w/o Radiology: Final report received (Endings suggestive of to recent splenic infarcts. Cholelithiasis. Small left pleural effusion. Possible right lung base nodule. No evidence of renal mass on noncontrast imaging. Small amount of free fluid within the pelvis) retroperitoneal US Radiology: Final report received (no hydronephrosis) PD MEDICAL DECISION MAKING - ED course Complexity details: reviewed results, re-evaluated patient, considered differential, d/w patient, d/w family ED course: 65 -year-old male presents the emergency department for a near syncope event and collapse while getting his labs drawn this afternoon. This gentleman has a history of type 1 diabetes as well as aortic valve replacement with a bovine valve. He has been getting worked up recently for a new finding of anemia with a recent EGD that showed diffuse gastritis but no active bleeding. Colonoscopy was negative.Today screening labs show a new acute kidney injury with a BUN of 66 and a creatinine of 4.8. This is in jacobson contrast to essentially normal renal function 4 months ago. After his near syncope he did have soft blood pressures in the 70s but that improved to the 90s and low 100s following 2 L of fluid. Initial high- sensitivity troponin was 52. I suspect that this is reflected secondary to the acute kidney injury rather than an NSTEMI event as he has no complaints of chest pain or shortness of air. Dr. Alarcon the patient's primary provider has called the ER to discuss the this patient. He is working the patient up for possible renal carcinoma given the anemia and the fairly elevated ferritin levels. 1610: I presented this case for admission to our hospitalist Dr. Caballero. However he is uncomfortable with the admission here at [facility] as we do not have nephrology services or cardiology services. I will attempt to contact other hospitals along our court order looking for bed availability however as of recently most hospitals have been at near 100% capacity. 1645: I have spoken with Dr. Cabezas the [facility] physician regarding need for transfer. he will attempt to locate a bed for transfer, but inidcated that all the hospitals are full. he does wonder if we could admit to [facility] and have phone consult for any nephrology related concerns 1700: Pt is noted to have a HR in the 40's; sinus ari. BP 100/60. Alert and oriented X3. Repeat troponin is decreased to 43. MANISH essentially unchanged 1750: [facility] physician has called back stating that we are on the "waitlist" for a bed at [facility] 1930: non contrast CT shows likely subacute splenic infarct, but no obvious renal mass. Given hx of bovine valve, may need to consider echo for endocarditis, though no murmur noted on exam. Pt's BP remains "soft" 90/50 with MAP > 60. 3 liter of crystalloid infusion. he is otherwise stable, alert. Renal US will be ordered for further evaluation of MANISH. PT indicates to this provider that typically his BP is 100-110 systolic 2100: I have spoken with hospitalist Dr. López at . pt was declined secondary to lack of beds. We remain on wait list at [facility]. I have again attempted to admit this patient to out hospitalist service, but Dr. Rawls has declined as he does not feel that we can offer services necessary for the patient. Pt is not yet anuric and he does not need emergent dialysis at this time 2200: [facility] of MANISH. Renal diet has been ordered as well as accu checks. Maintenance NS ordered at 150 ml hour. Repeat labs ordered in am for f/u of renal function. Pt will be signed out to nighttime colleague Dr. Winter to f/u further disposition. Departure - Departure Disposition: 02 Transfer Acute Care Hosp Clinical Impression: MANISH (acute kidney injury), Elevated troponin level Anemia Qualifiers: Anemia type: unspecified type Qualified Code(s): D64.9 - Anemia, unspecified DM I (diabetes mellitus, type I) Qualifiers: Diabetes mellitus complication status: with kidney complications Diabetes mellitus complication detail: with other kidney complication Qualified Code(s): E10.29 - Type 1 diabetes mellitus with other diabetic kidney complication
--- NOTE | 2021-05-30 15:39 | XRAY Report ---
PROCEDURE: Chest 1 View X-Ray INDICATIONS: Chest Pain TECHNIQUE: One view of the chest was acquired. COMPARISON: Correlation is made with prior chest CT, 07/08/2015 FINDINGS: Surgical changes and devices: Sternotomy wires are seen, including fractured sternotomy wires. Medias tinal clips are seen. The known prosthetic aortic valve is well seen on this plain film. Lungs and pleura: No pleural effusions or pneumothorax. Lungs are clear. Mediastinum: Mediastinal contours appear normal. Heart size is normal. Bones and chest wall: No suspicious bony lesions. Age-appropriate degenerative changes are seen. O verlying soft tissues appear unremarkable. IMPRESSION: No acute cardiopulmonary process is seen. Postoperative and degenerative changes are seen. Reviewed by: Reid Hernandez MD on 05/30/2021 2:38 PM NAI Approved by: Reid Hernandez MD on 05/30/2021 2:38 PM NAI Station ID: [id number]
[2021-05-30 15:42] LABS: ALBUMIN 2.3 g/dL (3.2-5.5); ALBUMIN/GLOBULIN RATIO 0.6 (1.0-2.2); BILIRUBIN,TOTAL 0.8 mg/dL (0.2-1.0); CREATININE 4.8 mg/dL (0.6-1.2); POTASSIUM 3.7 mmol/L (3.5-5.0); TOTAL PROTEIN 6.2 g/dL (6.7-8.2)
[2021-05-30] MEDS ORDERED: SODIUM CHLORIDE 0.9% 1,000 ML IV STA ×4 (15:57→21:42)
[2021-05-30 17:25] LABS: CALCIUM 7.4 mg/dL (8.5-10.3); CREATININE 4.7 mg/dL (0.6-1.2); POTASSIUM 3.7 mmol/L (3.5-5.0)
[2021-05-30 17:36] LABS: BILIRUBIN,URINE NEGATIVE (NEGATIVE); GLUCOSE, URINE (UA) NEGATIVE (NEGATIVE); KETONES,URINE (UA) NEGATIVE (NEGATIVE); LEUKOCYTE ESTERASE, URINE NEGATIVE (NEGATIVE); NITRITE,URINE NEGATIVE (NEGATIVE); OCCULT BLOOD,URINE LARGE (NEGATIVE); PROTEIN,URINE 100 mg/dL (NEGATIVE); UROBILINOGEN,URINE 0.2 (NORMAL) E.U./dL (NORMAL)
[2021-05-30 17:43] LABS: CLARITY,URINE HAZY (CLEAR)
[2021-05-30 17:52] LABS: AMORPHOUS SEDIMENT,UR Marked /LPF; BACTERIA,URINE Many /HPF (None Seen); SQUAMOUS EPITHELIAL CELL,UR NONE SEEN (<= Few); WBC,URINE 0-3 /HPF (0-3)
[2021-05-30 18:17] LABS: B. PARAPERTUSSIS- RESP PCR PAN NOT DETECTED; B. PERTUSSIS- RESP PCR PANEL NOT DETECTED; C. PNEUMONIAE- RESP PCR PANEL NOT DETECTED; CORONAVIRUS 229E-RESP PCR NOT DETECTED; CORONAVIRUS HKU1-RESP PCR NOT DETECTED; CORONAVIRUS NL63-RESP PCR NOT DETECTED; CORONAVIRUS OC43-RESP PCR NOT DETECTED; HUMAN METAPNEUMOVIRUS NOT DETECTED; INFLUENZA A- RESP PCR PANEL NOT DETECTED; INFLUENZA B - RESP PCR PANEL NOT DETECTED; M. PNEUMONIAE- RESP PCR PANEL NOT DETECTED; PARAINFLUENZA VIRUS 1 NOT DETECTED; PARAINFLUENZA VIRUS 2 NOT DETECTED; PARAINFLUENZA VIRUS 3 NOT DETECTED; PARAINFLUENZA VIRUS 4 NOT DETECTED; RHINOVIRUS/ENTEROVIRUS NOT DETECTED; RSV- RESP PCR PANEL NOT DETECTED; SARS-CoV-2 -RESP PCR PANEL NOT DETECTED
--- NOTE | 2021-05-30 19:06 | CT Report ---
PROCEDURE: Abdomen/Pelvis WO INDICATIONS: near syncope; hypotension; MANISH; ? renal cancer TECHNIQUE: Noncontrast 5 mm thick sections acquired from the diaphragms to the symphysis. 5 mm coronal and sagi ttal reformats were then performed. For radiation dose reduction, the following was used: automated exposure control, adjustment of mA and/or kV according to patient size. COMPARISON: None. FINDINGS: Image quality: Excellent. ABDOMEN: Lung bases: Small left pleural effusion. Mild bibasilar atelectasis versus pneumonia dependently. Pos sible nodular density within the right posterior lung base measuring 23 mm. Calcification of the ferdinand nary vasculature. Heart size is normal. Solid organs: Liver and spleen are normal in size. There is a wedge-shaped 16 mm diameter hypodensi ty within the superomedial spleen. Wedge-shaped 27 mm hypodensity within the anterior spleen. Gallbla dder is contracted and demonstrates calculi within its lumen. Pancreas is normal in contours. No ad renal nodules. Kidneys are normal in size, without hydronephrosis or nephrolithiasis. Peritoneum and bowel: Unenhanced bowel loops demonstrate normal wall thickness and caliber. No pneu moperitoneum. Small amount of free fluid within the pelvis. Appendix not seen. Nodes and vessels: No retroperitoneal or mesenteric adenopathy by size criteria. Aorta and inferior vena cava are normal in caliber. Miscellaneous: No ventral hernias. PELVIS: Genitourinary: Bladder wall thickness is normal. . Miscellaneous: No inguinal hernias or adenopathy. Bones: No suspicious bony lesions. No vertebral body compression fractures. IMPRESSION: 1. Findings suggestive of 2 recent splenic infarcts. 2. Cholelithiasis. 3. Small left pleural effusion. 4. Possible right lung base nodule. Further assessment with nonemergent outpatient follow-up chest CT with intravenous contrast is recommended. 5. No evidence of renal mass on noncontrast imaging. If there is clinical evidence for renal malignan cy, nonemergent outpatient follow-up renal protocol CT with and without intravenous contrast is recom mended for further assessment. 6. Appendix not seen. No evidence of appendicitis. 7. Small amount of free fluid within the pelvis Reviewed by: Gita Fitzpatrick MD on 05/30/2021 7:04 PM PDT Approved by: Gita Fitzpatrick MD on 05/30/2021 7:04 PM PDT Station ID: [id number]
[2021-05-30] MEDS ORDERED: LACTATED RINGERS 1,000 ML IV STA (19:13)
--- NOTE | 2021-05-30 21:49 | Ultrasound Report ---
PROCEDURE: Retroperitoneal INDICATIONS: MANISH; ? renal mass; ? renal flow TECHNIQUE: Real-time scanning was performed of the retroperitoneal organs, with image documentation. COMPARISON: None. FINDINGS: Kidneys: Kidneys are normal in size. Right kidney measures 12.8 cm long; left kidney measures 12.2 cm long. Right renal cortical thickness is 1.7 cm; left renal cortical thickness is 1.6 cm. No rubens d masses, hydronephrosis, or nephrolithiasis. Prevoid urinary bladder volume is 7.8 cc. IMPRESSION: No hydronephrosis. Reviewed by: Gita Fitzpatrick MD on 05/30/2021 9:47 PM PDT Approved by: Gita Fitzpatrick MD on 05/30/2021 9:47 PM PDT Station ID: [id number]
[2021-05-31] MEDS ORDERED: SODIUM CHLORIDE 0.9% 1,000 ML IV STA ×2 (04:36→09:11)
--- NOTE | 2021-05-31 07:06 | ED Physician Documentation ---
ED Addendum - Addendum Addendum: 05/31/21 06:50 65-year old male who is care is turned over to me by JUANA Perdomo at shift change is a diabetic male who is being worked up for anemia and he was in the lab today to get his blood drawn and he felt he had to drink a significant amount of water enough that he felt like he needed to vomit he got up to go into the bathroom and collapsed he states that he does not think he ever lost consciousness. He was brought to the emergency department for further resuscitation and laboratory evaluation was significant for a new onset of renal failure with a creatinine at 4.8. I asked the patient about his insulin regimen and he has a normal hemoglobin A1c when it was last tested. However he has had his Dexcom break and this was about 2 weeks ago and he has been running high sugars. He has been having polyuria polydipsia. The patient has received 3 L of saline at the time I reviewed his course in chart and with the coating technician at the bedside she was able to demonstrate his inferior vena cava that still collapsed completely with respiration but was an adequate size. ( indicating further room for fluids but adequate hydration) When I first encountered the patient he had significant speech latency of 3 to 4 seconds. He had significant delay in execution of motor commands just trying to answer his cell phone took some doing. By morning his speech latency and motor command execution were much improved. His scans were concerning for a recent splenic infarct x2 there is some evidence of renal artery atherosclerosis but with normal blood flow on color ultrasound. All area hospitals were full and unable to accept this patient in transfer and the patient was boarded in the emergency department overnight awaiting a bed at several hospitals. He was administered additional fluids. At shift change care is turned over to Dr. Alonzo with morning labs pending. 05/31/21 07:06
[2021-05-31 07:30] LABS: BASOPHILS % (AUTO) 0.3 %; HCT - HEMATOCRIT 22.4 % (42.0-52.0); HGB - HEMOGLOBIN 7.3 g/dL (14.0-18.0); LYMPHOCYTES # (AUTO) 0.6 10^3/uL (1.5-3.5); LYMPHOCYTES % (AUTO) 8.2 %; MEAN CORPUSCULAR HGB CONC 32.6 g/dL (32.0-36.0); MEAN CORPUSCULAR VOLUME 85.8 fL (80.0-94.0); MEAN PLATELET VOLUME 9.9 fL (7.4-11.4); MONOCYTES # (AUTO) 0.3 10^3/uL (0.0-1.0); MONOCYTES % (AUTO) 4.4 %; NEUTROPHILS # (AUTO) 5.9 10^3/uL (1.5-6.6); NEUTROPHILS % (AUTO) 86.8 %; PLT - PLATELET COUNT 151 10^3/uL (130-450); RED BLOOD COUNT 2.61 10^6/uL (4.70-6.10); RED CELL DISTRIBUTION WIDTH 14.5 % (12.0-15.0); WHITE BLOOD COUNT 6.8 x10^3/uL (4.8-10.8)
[2021-05-31 07:44] LABS: ALBUMIN 1.9 g/dL (3.2-5.5); ALBUMIN/GLOBULIN RATIO 0.5 (1.0-2.2); BILIRUBIN,TOTAL 0.8 mg/dL (0.2-1.0); CALCIUM 7.3 mg/dL (8.5-10.3); CREATININE 4.8 mg/dL (0.6-1.2); POTASSIUM 4.2 mmol/L (3.5-5.0); TOTAL PROTEIN 5.4 g/dL (6.7-8.2)
[2021-05-31 10:53] LABS: HGB - HEMOGLOBIN 7.3 g/dL (14.0-18.0)
--- NOTE | 2021-05-31 14:25 | ED Physician Documentation ---
ED Addendum - Addendum Addendum: 05/31/21 14:22The patient's blood test this morning are showing consistent level of renal insufficiency with normal electrolytes. The blood count is decreased from 9-7.2. His initial vital signs this morning were adequate. However he subsequently did have a drop in his blood pressure to 88 systolic. He was feeling okay however. He had not been receiving continued IV fluids so we did give another fluid bolus with blood pressure into the upper 90s systolic. Given his anemia as well as mild hypotension and the renal insufficiency, I am concerned about fluid overload and feel instead that transfusion of a unit of blood would be more productive for solving the blood pressure as well as blood count and immune improved perfusion to hopefully help with the renal function. The patient did ask for discussion of it and I gave him the rationale and he was consenting to it. entry clerk is still trying various hospitals to see on transfer of the patient.
[2021-05-31 17:08] LABS: CREATININE,URINE 100.5 mg/dL
--- NOTE | 2021-05-31 19:28 | ED Physician Documentation ---
ED Addendum - Addendum Addendum: 05/31/21 19:27 Care turned over from Dr. Alonzo at shift change. He remains borderline hypotensive. There is still no accepting facility. Given the circumstances I spoke with Dr. Pelayo, sanitation worker on-call for [place]. We discussed the results so far. She recommends discontinuing IV fluids and stopping aspirin although it does not look like he is on aspirin since he got here. She recommended the addition of multiple lab studies including KOFFI screen, ANCA screen, C3 and C4 complement, a morning cortisol, screening for hepatitis B, C, HIV, Aly kappa and lambda light chains, serum protein electrophoresis, and anti-GBM antibodies. Also recommended an echocardiogram. Does not think we should start steroids at this point but does recommend oral sodium bicarb 1300 mg twice a day.
[2021-05-31] MEDS ORDERED: SODIUM BICARBONATE 650 MG TABLET PO SCH (21:00)
--- NOTE | 2021-05-31 21:38 | ED Physician Documentation ---
ED Addendum - Addendum Addendum: 05/31/21 21:28 Today the patient has received a unit of blood, his IV fluid has been discontinued. His speech latency is improved his strength is improved but he has little reserve. He indicates he has strength but it only lasts briefly. He states that he does not feel much different than his usual over the past month. 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 He has more work up in progress including echo and specialist blood work. Might consider discharge after results of echo and re-consulting [place] warrant clerk. 06/01/21 04:51
[2021-06-01 07:36] LABS: BASOPHILS % (AUTO) 0.3 %; HCT - HEMATOCRIT 24.9 % (42.0-52.0); HGB - HEMOGLOBIN 8.1 g/dL (14.0-18.0); LYMPHOCYTES # (AUTO) 0.8 10^3/uL (1.5-3.5); LYMPHOCYTES % (AUTO) 10.8 %; MEAN CORPUSCULAR HEMOGLOBIN 27.6 pg (27.0-31.0); MEAN CORPUSCULAR HGB CONC 32.5 g/dL (32.0-36.0); MEAN PLATELET VOLUME 11.1 fL (7.4-11.4); MONOCYTES # (AUTO) 0.4 10^3/uL (0.0-1.0); MONOCYTES % (AUTO) 5.5 %; NEUTROPHILS # (AUTO) 6.5 10^3/uL (1.5-6.6); PLT - PLATELET COUNT 143 10^3/uL (130-450); RED BLOOD COUNT 2.93 10^6/uL (4.70-6.10); RED CELL DISTRIBUTION WIDTH 14.6 % (12.0-15.0); WHITE BLOOD COUNT 7.8 x10^3/uL (4.8-10.8)
[2021-06-01 07:51] LABS: ALBUMIN 1.9 g/dL (3.2-5.5); ALBUMIN/GLOBULIN RATIO 0.6 (1.0-2.2); BILIRUBIN,TOTAL 1.1 mg/dL (0.2-1.0); CALCIUM 7.3 mg/dL (8.5-10.3); CREATININE 5.4 mg/dL (0.6-1.2); MAGNESIUM 1.8 mg/dL (1.7-2.8); POTASSIUM 4.3 mmol/L (3.5-5.0); TOTAL PROTEIN 5.3 g/dL (6.7-8.2)
[2021-06-01 08:03] LABS: HCT - HEMATOCRIT 24.4 % (42.0-52.0)
--- NOTE | 2021-06-01 08:03 | ED Physician Documentation ---
ED Addendum - Addendum Addendum: 06/01/21 08:02 Daily labs reviewed, bicarb trending down as is sodium. BUN/Cr up. Asked RADHA Hayes PharmD to mix 850ml sterile water and 3 amps bicarb to run at MIVF rate for the day.
[2021-06-01] MEDS ORDERED: SODIUM BICARBONATE 150 MEQ in WATER FOR INJECTION,STERILE 850 ML IV STA (08:24)
[2021-06-01] MEDS: SODIUM BICARBONATE 650 MG TABLET PO SCH ×2 (12:50→21:45)
[2021-06-01] MEDS ORDERED: PROMETHAZINE INJ 25 MG in SODIUM CHLORIDE 0.9% 50 ML IV STA (16:35)
[2021-06-01] MEDS ORDERED: ELECTROLYTE-A SOLUTION 1,000 ML IV ONE (16:35)
--- NOTE | 2021-06-01 17:41 | ED Physician Documentation ---
ED Addendum - Addendum Addendum: 06/01/21 17:40 I went to evaluate the patient, he has not had much urine output today. He has been on a sodium bicarb drip as ordered by Dr. Lafleur. His blood pressure remained low. He states it has been low for the past month or so. He was given IV fluids here. We will recheck his electrolytes as well. The patient did reportedly fall and strike his head about 3 weeks ago in the shower. We will perform a head CT to ensure there are no acute findings on this. [facility] and [facility] may have a bed later today. We will continue to work on bed placement. Patient states that he is feeling better currently. Patient states that he stopped his lisinopril about a week ago. 06/01/211941 No acute findings on head CT. Blood pressure improved with IV fluids here. A bed was finally available at [facility], Dr. Howell graciously accepts in transfer. COBRA forms completed. Patient will be transferred for further care. This document was made in part using voice recognition software. While efforts are made to proofread this document, sound alike and grammatical errors may occur. 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 Hypotension Qualifiers: Hypotension type: unspecified hypotension type Qualified Code(s): I95.9 - Hypotension, unspecified Condition: Stable Results - Vitals Vitals: Vital Signs - 24 hr 05/31/21 05/31/21 05/31/21 20:00 20:08 21:08 Temperature Heart Rate 77 76 88 Respiratory 25 H 24 24 Rate Blood Pressure 96/57 L 96/57 L 95/48 L O2 Saturation 97 97 99 05/31/21 05/31/21 05/31/21 22:00 22:43 23:06 Temperature 36 C L 37.1 C Heart Rate 85 81 83 Respiratory 16 16 12 Rate Blood Pressure 100/65 100/65 88/53 L O2 Saturation 99 98 99 06/01/21 06/01/21 06/01/21 00:10 01:12 02:00 Temperature 36.8 C Heart Rate 82 80 93 Respiratory 21 20 23 Rate Blood Pressure 88/41 L 93/56 L 101/60 O2 Saturation 97 96 98 06/01/21 06/01/21 06/01/21 03:00 03:15 04:00 Temperature Heart Rate 70 86 Respiratory 26 H 22 26 H Rate Blood Pressure 101/60 103/59 L O2 Saturation 100 99 06/01/21 06/01/21 06/01/21 05:28 05:29 06:23 Temperature 37.6 C Heart Rate 82 83 82 Respiratory 22 24 22 Rate Blood Pressure 89/57 L 89/57 L 91/52 L O2 Saturation 96 06/01/21 06/01/21 06/01/21 09:00 11:00 12:00 Temperature Heart Rate 84 81 79 Respiratory 30 H 24 25 H Rate Blood Pressure 93/59 L 86/56 L 90/57 L O2 Saturation 95 95 97 06/01/21 06/01/21 06/01/21 12:29 14:00 16:00 Temperature Heart Rate 82 74 86 Respiratory 24 21 26 H Rate Blood Pressure 90/57 L 83/57 L 80/51 L O2 Saturation 96 96 97 06/01/21 06/01/21 06/01/21 17:01 18:24 19:00 Temperature 37.1 C Heart Rate 81 86 84 Respiratory 28 H 23 24 Rate Blood Pressure 96/51 L 112/58 L 102/63 O2 Saturation 100 100 100 Oxygen O2 Source Room air - Labs Labs: Laboratory Tests 05/30/21 05/30/21 05/30/21 15:02 15:11 15:11 WBC 8.1 RBC 3.33 L Hgb 9.2 L Hct 28.3 L MCV 85.0 MCH 27.6 MCHC 32.5 RDW 14.4 Plt Count 175 MPV 10.2 Neut # (Auto) 6.9 H Lymph # (Auto) 0.8 L [place] # (Auto) 0.4 Eos # (Auto) 0.0 Baso # (Auto) 0.0 Absolute Nucleated RBC 0.00 Nucleated RBC % 0.0 Sodium 128 L Potassium 3.7 Chloride 97 L Carbon Dioxide 19 L Anion Gap 12.0 BUN 66 H Creatinine 4.8 H Estimated GFR (MDRD) 12 L Glucose 152 H POC Whole Bld Glucose 140 H Lactic Acid Calcium 8.0 L Magnesium Total Bilirubin 0.8 AST 50 H ALT 42 Alkaline Phosphatase 67 Troponin I High Sens Total Protein 6.2 L Albumin 2.3 L Globulin 3.9 Albumin/Globulin Ratio 0.6 L Lipase 29 TSH PTH Intact Cortisol AM Sample Urine Color Urine Clarity Urine pH Ur Specific [place] Urine Protein Urine Glucose (UA) Urine Ketones Urine Occult Blood Urine Nitrite Urine Bilirubin Urine Urobilinogen Ur Leukocyte Esterase Urine RBC Urine WBC Ur Squamous Epith Cells Amorphous Sediment Urine Bacteria Ur Microscopic Review Urine Culture Comments U Random Total Protein Urine Creatinine Urine Sodium Nasal Adenovirus (PCR) Nasal B. parapertussis DNA (PCR) Nasal Coronavir 229E PCR Nasal Coronavir HKU1 PCR Nasal Coronavir NL63 PCR Nasal Coronavir OC43 PCR Nasal Enterovir/Rhinovir PCR Nasal Influenza B PCR Nasal Influenza A PCR Nasal Parainfluen 1 PCR Nasal Parainfluen 2 PCR Nasal Parainfluen 3 PCR Nasal Parainfluen 4 PCR Nasal RSV (PCR) Nasal B.pertussis DNA PCR Nasal C.pneumoniae (PCR) Scott Human Metapneumo PCR Nasal M.pneumoniae (PCR) Nasal SARS-CoV-2 (PCR) Blood Type Blood Type Recheck Antibody Screen Crossmatch IS Only 05/30/21 05/30/21 05/30/21 15:11 15:11 15:57 WBC RBC Hgb Hct MCV MCH MCHC RDW Plt Count MPV Neut # (Auto) Lymph # (Auto) [place] # (Auto) Eos # (Auto) Baso # (Auto) Absolute Nucleated RBC Nucleated RBC % Sodium Potassium Chloride Carbon Dioxide Anion Gap BUN Creatinine Estimated GFR (MDRD) Glucose POC Whole Bld Glucose Lactic Acid 1.3 Calcium Magnesium Total Bilirubin AST ALT Alkaline Phosphatase Troponin I High Sens 51.7 H* Total Protein Albumin Globulin Albumin/Globulin Ratio Lipase TSH 1.65 PTH Intact Cortisol AM Sample Urine Color Urine Clarity Urine pH Ur Specific [place] Urine Protein Urine Glucose (UA) Urine Ketones Urine Occult Blood Urine Nitrite Urine Bilirubin Urine Urobilinogen Ur Leukocyte Esterase Urine RBC Urine WBC Ur Squamous Epith Cells Amorphous Sediment Urine Bacteria Ur Microscopic Review Urine Culture Comments U Random Total Protein Urine Creatinine Urine Sodium Nasal Adenovirus (PCR) Nasal B. parapertussis DNA (PCR) Nasal Coronavir 229E PCR Nasal Coronavir HKU1 PCR Nasal Coronavir NL63 PCR Nasal Coronavir OC43 PCR Nasal Enterovir/Rhinovir PCR Nasal Influenza B PCR Nasal Influenza A PCR Nasal Parainfluen 1 PCR Nasal Parainfluen 2 PCR Nasal Parainfluen 3 PCR Nasal Parainfluen 4 PCR Nasal RSV (PCR) Nasal B.pertussis DNA PCR Nasal C.pneumoniae (PCR) Scott Human Metapneumo PCR Nasal M.pneumoniae (PCR) Nasal SARS-CoV-2 (PCR) Blood Type Blood Type Recheck Antibody Screen Crossmatch IS Only 05/30/21 05/30/21 05/30/21 17:07 17:10 17:10 WBC RBC Hgb Hct MCV MCH MCHC RDW Plt Count MPV Neut # (Auto) Lymph # (Auto) [place] # (Auto) Eos # (Auto) Baso # (Auto) Absolute Nucleated RBC Nucleated RBC % Sodium 130 L Potassium 3.7 Chloride 102 Carbon Dioxide 19 L Anion Gap 9.0 BUN 63 H Creatinine 4.7 H Estimated GFR (MDRD) 13 L Glucose 105 H POC Whole Bld Glucose Lactic Acid Calcium 7.4 L Magnesium Total Bilirubin AST ALT Alkaline Phosphatase Troponin I High Sens Total Protein Albumin Globulin Albumin/Globulin Ratio Lipase TSH PTH Intact 87 Cortisol AM Sample Urine Color Urine Clarity Urine pH Ur Specific [place] Urine Protein Urine Glucose (UA) Urine Ketones Urine Occult Blood Urine Nitrite Urine Bilirubin Urine Urobilinogen Ur Leukocyte Esterase Urine RBC Urine WBC Ur Squamous Epith Cells Amorphous Sediment Urine Bacteria Ur Microscopic Review Urine Culture Comments U Random Total Protein Urine Creatinine Urine Sodium Nasal Adenovirus (PCR) NOT DETECTED Nasal B. parapertussis DNA (PCR) NOT DETECTED Nasal Coronavir 229E PCR NOT DETECTED Nasal Coronavir HKU1 PCR NOT DETECTED Nasal Coronavir NL63 PCR NOT DETECTED Nasal Coronavir OC43 PCR NOT DETECTED Nasal Enterovir/Rhinovir PCR NOT DETECTED Nasal Influenza B PCR NOT DETECTED Nasal Influenza A PCR NOT DETECTED Nasal Parainfluen 1 PCR NOT DETECTED Nasal Parainfluen 2 PCR NOT DETECTED Nasal Parainfluen 3 PCR NOT DETECTED Nasal Parainfluen 4 PCR NOT DETECTED Nasal RSV (PCR) NOT DETECTED Nasal B.pertussis DNA PCR NOT DETECTED Nasal C.pneumoniae (PCR) NOT DETECTED Scott Human Metapneumo PCR NOT DETECTED Nasal M.pneumoniae (PCR) NOT DETECTED Nasal SARS-CoV-2 (PCR) NOT DETECTED Blood Type Blood Type Recheck Antibody Screen Crossmatch IS Only 10/10/21 10/10/21 10/10/21 17:10 17:21 17:47 WBC RBC Hgb Hct MCV MCH MCHC RDW Plt Count MPV Neut # (Auto) Lymph # (Auto) [place] # (Auto) Eos # (Auto) Baso # (Auto) Absolute Nucleated RBC Nucleated RBC % Sodium Potassium Chloride Carbon Dioxide Anion Gap BUN Creatinine Estimated GFR (MDRD) Glucose POC Whole Bld Glucose Lactic Acid Calcium Magnesium 1.9 Total Bilirubin AST ALT Alkaline Phosphatase Troponin I High Sens 42.4 H* Total Protein Albumin Globulin Albumin/Globulin Ratio Lipase TSH PTH Intact Cortisol AM Sample Urine Color DARK YELLOW Urine Clarity HAZY Urine pH 5.0 Ur Specific [place] 1.020 Urine Protein 100 H Urine Glucose (UA) NEGATIVE Urine Ketones NEGATIVE Urine Occult Blood LARGE H Urine Nitrite NEGATIVE Urine Bilirubin NEGATIVE Urine Urobilinogen 0.2 (NORMAL) Ur Leukocyte Esterase NEGATIVE Urine RBC 11-25 H Urine WBC 0-3 Ur Squamous Epith Cells NONE SEEN Amorphous Sediment Marked Urine Bacteria Many H Ur Microscopic Review INDICATED Urine Culture Comments NOT INDICATED U Random Total Protein Urine Creatinine Urine Sodium Nasal Adenovirus (PCR) Nasal B. parapertussis DNA (PCR) Nasal Coronavir 229E PCR Nasal Coronavir HKU1 PCR Nasal Coronavir NL63 PCR Nasal Coronavir OC43 PCR Nasal Enterovir/Rhinovir PCR Nasal Influenza B PCR Nasal Influenza A PCR Nasal Parainfluen 1 PCR Nasal Parainfluen 2 PCR Nasal Parainfluen 3 PCR Nasal Parainfluen 4 PCR Nasal RSV (PCR) Nasal B.pertussis DNA PCR Nasal C.pneumoniae (PCR) Scott Human Metapneumo PCR Nasal M.pneumoniae (PCR) Nasal SARS-CoV-2 (PCR) Blood Type Blood Type Recheck Antibody Screen Crossmatch IS Only 05/30/21 05/31/21 05/31/21 21:50 05:59 07:24 WBC 6.8 RBC 2.61 L Hgb 7.3 L Hct 22.4 L MCV 85.8 MCH 28.0 MCHC 32.6 RDW 14.5 Plt Count 151 MPV 9.9 Neut # (Auto) 5.9 Lymph # (Auto) 0.6 L [place] # (Auto) 0.3 Eos # (Auto) 0.0 Baso # (Auto) 0.0 Absolute Nucleated RBC 0.00 Nucleated RBC % 0.0 Sodium Potassium Chloride Carbon Dioxide Anion Gap BUN Creatinine Estimated GFR (MDRD) Glucose POC Whole Bld Glucose 137 H 181 H Lactic Acid Calcium Magnesium Total Bilirubin AST ALT Alkaline Phosphatase Troponin I High Sens Total Protein Albumin Globulin Albumin/Globulin Ratio Lipase TSH PTH Intact Cortisol AM Sample Urine Color Urine Clarity Urine pH Ur Specific [place] Urine Protein Urine Glucose (UA) Urine Ketones Urine Occult Blood Urine Nitrite Urine Bilirubin Urine Urobilinogen Ur Leukocyte Esterase Urine RBC Urine WBC Ur Squamous Epith Cells Amorphous Sediment Urine Bacteria Ur Microscopic Review Urine Culture Comments U Random Total Protein Urine Creatinine Urine Sodium Nasal Adenovirus (PCR) Nasal B. parapertussis DNA (PCR) Nasal Coronavir 229E PCR Nasal Coronavir HKU1 PCR Nasal Coronavir NL63 PCR Nasal Coronavir OC43 PCR Nasal Enterovir/Rhinovir PCR Nasal Influenza B PCR Nasal Influenza A PCR Nasal Parainfluen 1 PCR Nasal Parainfluen 2 PCR Nasal Parainfluen 3 PCR Nasal Parainfluen 4 PCR Nasal RSV (PCR) Nasal B.pertussis DNA PCR Nasal C.pneumoniae (PCR) Scott Human Metapneumo PCR Nasal M.pneumoniae (PCR) Nasal SARS-CoV-2 (PCR) Blood Type Blood Type Recheck Antibody Screen Crossmatch IS Only 05/31/21 05/31/21 05/31/21 07:24 07:24 07:24 WBC RBC Hgb Hct MCV MCH MCHC RDW Plt Count MPV Neut # (Auto) Lymph # (Auto) [place] # (Auto) Eos # (Auto) Baso # (Auto) Absolute Nucleated RBC Nucleated RBC % Sodium 128 L Potassium 4.2 Chloride 101 Carbon Dioxide 16 L Anion Gap 11.0 BUN 67 H Creatinine 4.8 H Estimated GFR (MDRD) 12 L Glucose 216 H POC Whole Bld Glucose Lactic Acid Calcium 7.3 L Magnesium 2.0 Total Bilirubin 0.8 AST 35 ALT 33 Alkaline Phosphatase 54 Troponin I High Sens Total Protein 5.4 L Albumin 1.9 L Globulin 3.5 Albumin/Globulin Ratio 0.5 L Lipase 28 TSH PTH Intact Cortisol AM Sample Urine Color Urine Clarity Urine pH Ur Specific [place] Urine Protein Urine Glucose (UA) Urine Ketones Urine Occult Blood Urine Nitrite Urine Bilirubin Urine Urobilinogen Ur Leukocyte Esterase Urine RBC Urine WBC Ur Squamous Epith Cells Amorphous Sediment Urine Bacteria Ur Microscopic Review Urine Culture Comments U Random Total Protein Urine Creatinine Urine Sodium Nasal Adenovirus (PCR) Nasal B. parapertussis DNA (PCR) Nasal Coronavir 229E PCR Nasal Coronavir HKU1 PCR Nasal Coronavir NL63 PCR Nasal Coronavir OC43 PCR Nasal Enterovir/Rhinovir PCR Nasal Influenza B PCR Nasal Influenza A PCR Nasal Parainfluen 1 PCR Nasal Parainfluen 2 PCR Nasal Parainfluen 3 PCR Nasal Parainfluen 4 PCR Nasal RSV (PCR) Nasal B.pertussis DNA PCR Nasal C.pneumoniae (PCR) Scott Human Metapneumo PCR Nasal M.pneumoniae (PCR) Nasal SARS-CoV-2 (PCR) Blood Type Blood Type Recheck A POSITIVE Antibody Screen Crossmatch IS Only 05/31/21 05/31/21 05/31/21 10:47 10:47 11:58 WBC RBC Hgb 7.3 L Hct 22.0 L MCV MCH MCHC RDW Plt Count MPV Neut # (Auto) Lymph # (Auto) [place] # (Auto) Eos # (Auto) Baso # (Auto) Absolute Nucleated RBC Nucleated RBC % Sodium Potassium Chloride Carbon Dioxide Anion Gap BUN Creatinine Estimated GFR (MDRD) Glucose POC Whole Bld Glucose 101 H Lactic Acid Calcium Magnesium Total Bilirubin AST ALT Alkaline Phosphatase Troponin I High Sens Total Protein Albumin Globulin Albumin/Globulin Ratio Lipase TSH PTH Intact Cortisol AM Sample Urine Color Urine Clarity Urine pH Ur Specific [place] Urine Protein Urine Glucose (UA) Urine Ketones Urine Occult Blood Urine Nitrite Urine Bilirubin Urine Urobilinogen Ur Leukocyte Esterase Urine RBC Urine WBC Ur Squamous Epith Cells Amorphous Sediment Urine Bacteria Ur Microscopic Review Urine Culture Comments U Random Total Protein Urine Creatinine Urine Sodium Nasal Adenovirus (PCR) Nasal B. parapertussis DNA (PCR) Nasal Coronavir 229E PCR Nasal Coronavir HKU1 PCR Nasal Coronavir NL63 PCR Nasal Coronavir OC43 PCR Nasal Enterovir/Rhinovir PCR Nasal Influenza B PCR Nasal Influenza A PCR Nasal Parainfluen 1 PCR Nasal Parainfluen 2 PCR Nasal Parainfluen 3 PCR Nasal Parainfluen 4 PCR Nasal RSV (PCR) Nasal B.pertussis DNA PCR Nasal C.pneumoniae (PCR) Scott Human Metapneumo PCR Nasal M.pneumoniae (PCR) Nasal SARS-CoV-2 (PCR) Blood Type A POSITIVE Blood Type Recheck Antibody Screen NEGATIVE Crossmatch IS Only See Detail 05/31/21 05/31/21 05/31/21 16:13 16:20 21:06 WBC RBC Hgb Hct MCV MCH MCHC RDW Plt Count MPV Neut # (Auto) Lymph # (Auto) [place] # (Auto) Eos # (Auto) Baso # (Auto) Absolute Nucleated RBC Nucleated RBC % Sodium Potassium Chloride Carbon Dioxide Anion Gap BUN Creatinine Estimated GFR (MDRD) Glucose POC Whole Bld Glucose 210 H 87 Lactic Acid Calcium Magnesium Total Bilirubin AST ALT Alkaline Phosphatase Troponin I High Sens Total Protein Albumin Globulin Albumin/Globulin Ratio Lipase TSH PTH Intact Cortisol AM Sample Urine Color Urine Clarity Urine pH Ur Specific [place] Urine Protein Urine Glucose (UA) Urine Ketones Urine Occult Blood Urine Nitrite Urine Bilirubin Urine Urobilinogen Ur Leukocyte Esterase Urine RBC Urine WBC Ur Squamous Epith Cells Amorphous Sediment Urine Bacteria Ur Microscopic Review Urine Culture Comments U Random Total Protein 77 Urine Creatinine 100.5 Urine Sodium 37.0 Nasal Adenovirus (PCR) Nasal B. parapertussis DNA (PCR) Nasal Coronavir 229E PCR Nasal Coronavir HKU1 PCR Nasal Coronavir NL63 PCR Nasal Coronavir OC43 PCR Nasal Enterovir/Rhinovir PCR Nasal Influenza B PCR Nasal Influenza A PCR Nasal Parainfluen 1 PCR Nasal Parainfluen 2 PCR Nasal Parainfluen 3 PCR Nasal Parainfluen 4 PCR Nasal RSV (PCR) Nasal B.pertussis DNA PCR Nasal C.pneumoniae (PCR) Scott Human Metapneumo PCR Nasal M.pneumoniae (PCR) Nasal SARS-CoV-2 (PCR) Blood Type Blood Type Recheck Antibody Screen Crossmatch IS Only 06/01/21 06/01/21 06/01/21 07:25 07:25 07:25 WBC 7.8 RBC 2.93 L Hgb 8.1 L Hct 24.9 L MCV 85.0 MCH 27.6 MCHC 32.5 RDW 14.6 Plt Count 143 MPV 11.1 Neut # (Auto) 6.5 Lymph # (Auto) 0.8 L [place] # (Auto) 0.4 Eos # (Auto) 0.0 Baso # (Auto) 0.0 Absolute Nucleated RBC 0.00 Nucleated RBC % 0.0 Sodium 125 L Potassium 4.3 Chloride 99 L Carbon Dioxide 12 L* Anion Gap 14.0 H BUN 72 H Creatinine 5.4 H Estimated GFR (MDRD) 11 L Glucose 323 H POC Whole Bld Glucose Lactic Acid Calcium 7.3 L Magnesium 1.8 Total Bilirubin 1.1 H AST 33 ALT 34 Alkaline Phosphatase 57 Troponin I High Sens Total Protein 5.3 L Albumin 1.9 L Globulin 3.4 Albumin/Globulin Ratio 0.6 L Lipase TSH PTH Intact Cortisol AM Sample 19.1 Urine Color Urine Clarity Urine pH Ur Specific [place] Urine Protein Urine Glucose (UA) Urine Ketones Urine Occult Blood Urine Nitrite Urine Bilirubin Urine Urobilinogen Ur Leukocyte Esterase Urine RBC Urine WBC Ur Squamous Epith Cells Amorphous Sediment Urine Bacteria Ur Microscopic Review Urine Culture Comments U Random Total Protein Urine Creatinine Urine Sodium Nasal Adenovirus (PCR) Nasal B. parapertussis DNA (PCR) Nasal Coronavir 229E PCR Nasal Coronavir HKU1 PCR Nasal Coronavir NL63 PCR Nasal Coronavir OC43 PCR Nasal Enterovir/Rhinovir PCR Nasal Influenza B PCR Nasal Influenza A PCR Nasal Parainfluen 1 PCR Nasal Parainfluen 2 PCR Nasal Parainfluen 3 PCR Nasal Parainfluen 4 PCR Nasal RSV (PCR) Nasal B.pertussis DNA PCR Nasal C.pneumoniae (PCR) [place] Human Metapneumo PCR Nasal M.pneumoniae (PCR) Nasal SARS-CoV-2 (PCR) Blood Type Blood Type Recheck Antibody Screen Crossmatch IS Only 06/01/21 06/01/21 06/01/21 08:00 16:44 17:55 WBC RBC Hgb 8.0 L Hct 24.4 L MCV MCH MCHC RDW Plt Count MPV Neut # (Auto) Lymph # (Auto) [place] # (Auto) Eos # (Auto) Baso # (Auto) Absolute Nucleated RBC Nucleated RBC % Sodium 124 L Potassium 3.9 Chloride 91 L Carbon Dioxide 15 L Anion Gap 18.0 H BUN 78 H Creatinine 5.8 H Estimated GFR (MDRD) 10 L Glucose 375 H POC Whole Bld Glucose 339 H Lactic Acid Calcium 7.3 L Magnesium Total Bilirubin AST ALT Alkaline Phosphatase Troponin I High Sens Total Protein Albumin Globulin Albumin/Globulin Ratio Lipase TSH PTH Intact Cortisol AM Sample Urine Color Urine Clarity Urine pH Ur Specific [place] Urine Protein Urine Glucose (UA) Urine Ketones Urine Occult Blood Urine Nitrite Urine Bilirubin Urine Urobilinogen Ur Leukocyte Esterase Urine RBC Urine WBC Ur Squamous Epith Cells Amorphous Sediment Urine Bacteria Ur Microscopic Review Urine Culture Comments U Random Total Protein Urine Creatinine Urine Sodium Nasal Adenovirus (PCR) Nasal B. parapertussis DNA (PCR) Nasal Coronavir 229E PCR Nasal Coronavir HKU1 PCR Nasal Coronavir NL63 PCR Nasal Coronavir OC43 PCR Nasal Enterovir/Rhinovir PCR Nasal Influenza B PCR Nasal Influenza A PCR Nasal Parainfluen 1 PCR Nasal Parainfluen 2 PCR Nasal Parainfluen 3 PCR Nasal Parainfluen 4 PCR Nasal RSV (PCR) Nasal B.pertussis DNA PCR Nasal C.pneumoniae (PCR) [place] Human Metapneumo PCR Nasal M.pneumoniae (PCR) Nasal SARS-CoV-2 (PCR) Blood Type Blood Type Recheck Antibody Screen Crossmatch IS Only
--- NOTE | 2021-06-01 17:53 | CT Report ---
PROCEDURE: HEAD WO INDICATIONS: altered, fall 3 weeks ago TECHNIQUE: Noncontrast 4.5 mm thick angled axial sections acquired from the foramen magnum to the vertex. For r adiation dose reduction, the following was used: automated exposure control, adjustment of mA and/or kV according to patient size. COMPARISON: None. FINDINGS: Image quality: Excellent. CSF spaces: Basal cisterns are patent. No extra-axial fluid collections. Ventricles are normal in size and shape. Brain: No midline shift. No intracranial masses or hemorrhage. Zamora-white matter interface is norm al. Skull and face: Calvarium and visualized facial bones are intact, without suspicious lesions. Sinuses: Visualized sinuses and mastoids are clear. IMPRESSION: 1. No acute intracranial process. Reviewed by: Chandrika Murillo MD on 06/01/2021 5:51 PM PDT Approved by: Chandrika Murillo MD on 06/01/2021 5:51 PM PDT Station ID: [id number]
[2021-06-01 18:08] LABS: CALCIUM 7.3 mg/dL (8.5-10.3); CREATININE 5.8 mg/dL (0.6-1.2); POTASSIUM 3.9 mmol/L (3.5-5.0)
[2021-06-01] MEDS ORDERED: ONDANSETRON 4 MG/2 ML VIAL IVP STA (21:18)
[2021-06-01 21:30] VITALS: BP 125/62
[2021-06-02 11:31] LABS: HEPATITIS C ANTIBODY NON-REACTIVE (NON-REACTIVE)
[2021-06-02 12:06] LABS: HIV AG/AB 4TH GEN NON-REACTIVE (NON-REACTIVE)
[2021-06-02 12:32] LABS: HEPATITIS B SURFACE ANTIGEN NON-REACTIVE (NON-REACTIVE)
[2021-06-03 21:41] LABS: ALBUMIN 1.8 g/dL (3.8-4.8); ALPHA 1 GLOBULIN 0.5 g/dL (0.2-0.3); ALPHA 2 GLOBULIN 0.7 g/dL (0.5-0.9); BETA 1 GLOBULIN 0.3 g/dL (0.4-0.6); BETA 2 GLOBULIN 0.3 g/dL (0.2-0.5); GAMMA GLOBULIN 1.2 g/dL (0.8-1.7)
[2021-06-03 23:16] LABS: ANA PATTERN Nuclear, Speckled; ANA SCREEN POSITIVE (NEGATIVE); ANA TITER 1:40 titer
[2021-06-04 19:56] LABS: ANCA SCREEN NEGATIVE (NEGATIVE)
[2021-06-07 11:26] LABS: KAPPA/LAMBDA RATIO 1.62 (1.29-2.55)
== END 2021-06-01 21:45 | disposition short-term general hospital (02) ==
LOC: ED 14:43
DX: E10.29 Type 1 diabetes mellitus with other diabetic kidney complication (principal); N17.9 Acute kidney failure, unspecified; D64.9 Anemia, unspecified; K29.70 Gastritis, unspecified, without bleeding; Z79.4 Long term (current) use of insulin; Z95.1 Presence of aortocoronary bypass graft; I10 Essential (primary) hypertension; R00.1 Bradycardia, unspecified; R94.31 Abnormal electrocardiogram [ECG] [EKG]; R79.89 Other specified abnormal findings of blood chemistry; R31.9 Hematuria, unspecified; Z95.3 Presence of xenogenic heart valve; I95.9 Hypotension, unspecified; S09.90XA Unspecified injury of head, initial encounter; W19.XXXA Unspecified fall, initial encounter; Z20.822 Contact with and (suspected) exposure to COVID-19
CPT/HCPCS: 0202U; 36415; 36430; 70450; 71045; 74176; 76770; 80048; 80053; 81001; 81256; 82533; 82570; 82728; 83520; 83540; 83605; 83690; 83735; 83883; 83970; 84155; 84156; 84165; 84300; 84443; 84466; 84484; 85014; 85018; 85025; 86021; 86038; 86039; 86160; 86803; 86850; 86900; 86901; 86920; 87340; 87389; 93005; 93306; 96361; 96365; 96366; 96367; 96375; 99284; 99285; A9270; J7040; J7120; P9016; 81003; 81599; 87086

== ENCOUNTER 2021-06-01 21:46 | Outpatient (CLI) | payer OTHER | END 2021-06-01 21:47 | disposition short-term general hospital (02) | LOC: EMS 21:46 | PROVIDERS: ATTEND Emergency Medicine | DX: N19 Unspecified kidney failure (principal); E87.2 Acidosis | CPT/HCPCS: A0425; A0428 ==

== ENCOUNTER 2021-06-28 19:56 | Outpatient (CLI) | payer OTHER | END 2021-06-28 19:57 | disposition E | LOC: EMS 19:56 | DX: I46.9 Cardiac arrest, cause unspecified (principal) | CPT/HCPCS: A0425; A0429 ==